=== PATIENT | male | born 1960 | race American Indian/Alaskan Native ===

== ENCOUNTER 2016-09-14 06:29 | Emergency (ER) | payer MEDICARE ==
[2016-09-14 07:07] LABS: Basophils % (Auto) 1.2 % (0.0-1.8); Eosinophils % (Auto) 1.5 % (0.0-4.3); Hematocrit 39.1 % (35.5-45.6); Mean Corpuscular HGB Conc 33 % (32-34); Mean Corpuscular Hemoglobin 29 pg (28-32); Mean Corpuscular Volume 87 fl (84-94); Platelet Count 246 K/mm3 (140-440); Red Blood Count 4.47 M/mm3 (3.65-5.03); Red Cell Distribution Width 15.2 % (13.2-15.2); White Blood Count 7.3 K/mm3 (4.5-11.0)
[2016-09-14 07:28] LABS: Alanine Aminotransferase 14 units/L (7-56); Albumin 4.3 g/dL (3.9-5); Albumin/Globulin Ratio 1.3 %; Alkaline Phosphatase 86 units/L (35-129); Anion Gap 18 mmol/L; Blood Urea Nitrogen 12 mg/dL (9-20); Calcium 9.5 mg/dL (8.4-10.2); Carbon Dioxide 23 mmol/L (22-30); Chloride 100.4 mmol/L (98-107); Glucose 114 mg/dL (75-100); Potassium 3.9 mmol/L (3.6-5.0); Sodium 137 mmol/L (137-145); Total Protein 7.6 g/dL (6.3-8.2)
[2016-09-14 07:51] LABS: Bilirubin,Urine NEG (Negative); Blood,Urine NEG (Negative); Ketones,Urine TR mg/dL (Negative); Leukocyte Esterase,Urine NEG (Negative); Mucus,Urine FEW /HPF; Nitrite,Urine NEG (Negative); Protein,Urine <15 mg/dL mg/dL (Negative); Urobilinogen,Urine < 2.0 mg/dL (<2.0); WBC,Urine < 1.0 /HPF (0.0-6.0)
[2016-09-14] MEDS ORDERED: CATAPRES PO ONE (08:17)
[2016-09-14 09:02] LABS: Creatine Kinase 172 units/L (55-170)
[2016-09-14 09:14] VITALS: BP 163/76
== END 2016-09-14 09:17 | disposition left against medical advice (07) ==
LOC: ED 06:29
DX: I10 Essential (primary) hypertension (principal); Z53.21 Procedure and treatment not carried out due to patient leaving prior to being seen by health care provider
CPT/HCPCS: 36415; 80053; 81001; 82550; 82553; 82962; 84484; 85025; 93005; 93010

== ENCOUNTER 2016-09-14 10:00 | Emergency (ER) | payer MEDICARE ==
[2016-09-14 12:49] VITALS: BP 147/94
--- NOTE | 2016-09-14 18:47 | Emergency Department Report ---
Entered by VICKI MCCORMACK, acting as scribe for FRANCISCO BROWN NP. ED General Adult HPI - General Chief complaint: High BP Stated complaint: HIGH BLOOD PRESSURE Time Seen by Provider: 09/14/16 10:47 Source: patient Mode of arrival: Ambulatory Limitations: No Limitations - History of Present Illness Initial comments: This is a 56 year old male nontoxic, well nourished in appearance, no acute signs of distress, with PMHx DM and HTN, presents to ED with c/o HTN and hyperglycemia since earlier today. Patient stated he was here earlier today for high blood pressure and hyperglycemia but eloped. Patient stated he received a "blood pressure" medication in the ED and went back to the [facility]. When he went back they told him that he needs a confirmation note that he was in the ED. Patient right now states he just wants a note from the hospital that he was here. Patient stated has follow-up provider for blood pressure medication and diabetes medication. Patient stated he is not taking HTN and DM meds at this time due to no income. Patient denies chest pain, SOB, nausea, headache, fever, chills, n/v, stiff neck, abd pain, polyuria, urinary symptoms, vomiting, or blurry vision. NKDA. WATSON Complaint: Medical Clearance -: Last night Associated Symptoms: denies other symptoms. denies: confusion, chest pain, cough, diaphoresis, fever/chills, headaches, loss of appetite, malaise, nausea/ vomiting, rash, seizure, shortness of breath, syncope, weakness Treatments Prior to Arrival: none - Related Data Allergies Allergy/AdvReac Type Severity Reaction Status Date / Time No Known Allergies Allergy Verified 09/14/16 10:10 ED Review of Systems Comment: All other systems reviewed and negative Constitutional: denies: chills, fever Eyes: denies: eye pain, eye discharge, vision change ENT: denies: ear pain, throat pain Respiratory: denies: cough, orthopnea, shortness of breath, SOB with exertion, SOB at rest, wheezing Cardiovascular: denies: chest pain, palpitations, dyspnea on exertion, orthopnea , edema, syncope, paroxysmal nocturnal dyspnea Endocrine: no symptoms reported Gastrointestinal: denies: abdominal pain, nausea, diarrhea, constipation Genitourinary: denies: urgency, dysuria Musculoskeletal: denies: back pain, joint swelling, arthralgia Skin: denies: rash, lesions Neurological: denies: headache, weakness, numbness, paresthesias Psychiatric: denies: anxiety, depression Hematological/Lymphatic: denies: easy bleeding, easy bruising ED Past Medical Hx - Past Medical History Hx Hypertension: Yes Hx Diabetes: Yes Hx Psychiatric Treatment: Yes (BIPOLAR) Additional medical history: PANCREATITIS - Social History Smoking Status: Current Every Day Smoker Substance Use Type: None ED Physical Exam - General Limitations: No Limitations General appearance: alert, in no apparent distress - Head Head exam: Present: atraumatic, normocephalic, normal inspection - Eye Eye exam: Present: normal appearance, PERRL, EOMI. Absent: scleral icterus, conjunctival injection, nystagmus, periorbital swelling, periorbital tenderness Pupils: Present: normal accommodation. Absent: irregular - ENT ENT exam: Present: normal exam, normal orophraynx, mucous membranes moist, TM's normal bilaterally, normal external ear exam - Neck Neck exam: Present: normal inspection, full ROM. Absent: tenderness, meningismus, lymphadenopathy, thyromegaly - Respiratory Respiratory exam: Present: normal lung sounds bilaterally. Absent: respiratory distress, wheezes, rales, rhonchi, stridor, chest wall tenderness, accessory muscle use, decreased breath sounds, prolonged expiratory - Cardiovascular Cardiovascular Exam: Present: regular rate, normal rhythm, normal heart sounds. Absent: bradycardia, tachycardia, irregular rhythm, systolic murmur, diastolic murmur, rubs, gallop - GI/Abdominal GI/Abdominal exam: Present: soft, normal bowel sounds - Rectal Rectal exam: Present: deferred - Extremities Exam Extremities exam: Present: normal inspection, full ROM, normal capillary refill. Absent: tenderness, pedal edema, joint swelling, calf tenderness - Back Exam Back exam: Present: normal inspection, full ROM. Absent: tenderness, CVA tenderness (R), CVA tenderness (L), muscle spasm, paraspinal tenderness, vertebral tenderness, rash noted - Neurological Exam Neurological exam: Present: alert, oriented X3, CN II-XII intact, normal gait, reflexes normal - Psychiatric Psychiatric exam: Present: normal affect, normal mood - Skin Skin exam: Present: warm, dry, intact, normal color. Absent: rash ED Course Vital Signs 09/14/16 10:10 Temperature 98.2 F Pulse Rate 78 Respiratory 16 Rate Blood Pressure 112/82 O2 Sat by Pulse 100 Oximetry - Reevaluation(s) Reevaluation #1: 09/14/16 12:33 Patient is able to speak in full sentences with no signs of distress noted. Reevaluation #2: 09/14/16 12:33 Patient refused UA and stated he just wants his discharge paper work. ED Medical Decision Making - Medical Decision Making Ed course: This is a 56-year-old male that presents with HTN and hyperglycmia 1- patient was examined by myself. Patient stated he does not want any lab work or UA. 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 2- Patient was instructed that he needs to take medication for his blood pressure and DM 3- At time time of discharge, the patient does not seem toxic or ill in appearance. No acute signs of distress noted. Patient agrees to discharge treatment plan of care. No further questions noted by the patient. 4- patients b/p is currently normal. Patient is requesting food and water. ED Disposition Clinical Impression: Hypertension, Encounter for medical clearance for patient hold Disposition: DC-01 TO HOME OR SELFCARE Is pt being admited?: No Does the pt Need Aspirin: No Condition: Stable Instructions: Diabetes Mellitus Type 2 in Adults (ED), Hypertension (ED) Additional Instructions: Follow-up department care doctor in 24 hours. It is important that he take a blood pressure medication and diabetes medication. These health conditions can be very serious and could affect her life. Referrals: PRIMARY CARE, [Primary Care Provider] - 24 Hours JYOTI MARCIAL JR, MD [Staff Physician] - 3-5 Days [facility] [Outside] - 3-5 Days [facility] [Outside] - 3-5 Days Forms: Work/School Release Form(ED) This documentation as recorded by the KSENIA holland PEARL,accurately reflects the service I personally performed and the decisions made by me,FRANCISCO BROWN, JOCY.
== END 2016-09-14 12:49 | disposition home or self-care (01) ==
LOC: ED 10:00
DX: I10 Essential (primary) hypertension (principal); E11.65 Type 2 diabetes mellitus with hyperglycemia; F17.200 Nicotine dependence, unspecified, uncomplicated
CPT/HCPCS: 82962; 99282

== ENCOUNTER 2016-09-17 09:48 | Emergency (ER) | payer MEDICARE ==
--- NOTE | 2016-09-17 12:01 | XRay Report ---
Chest 2 views: History: Cough, DM. Findings: Normal cardiomediastinal silhouette. Trachea is midline. No consolidation, pneumothorax or pleural effusion. Impression: No acute cardiopulmonary findings.
[2016-09-17 14:16] VITALS: BP 134/95
--- NOTE | 2016-09-17 18:43 | Emergency Department Report ---
Entered by NANO LEAHY, acting as scribe for FRANCISCO BROWN NP. - General Chief Complaint: Upper Respiratory Infection Stated Complaint: COLD,DIABATES Time Seen by Provider: 09/17/16 11:58 Source: patient Mode of arrival: Ambulatory Limitations: No Limitations - History of Present Illness Initial Comments: This is a 56 y/o male, nontoxic, well nourished in appearance, no acute signs of distress presents with cold and high blood sugar since yesterday. Associated symptoms include dry cough but he denies fever, chills, throat pain, chest pain , calf bell, abd pain, n/v, shortness of breathe, and rhinorrhea. Patient stated he just started his Metformin medication this morning and stated he took first dose this morning 30mins prior to arrival to the ED. Patient denies polyuria, polydipsia, dysuria, constipation, or diarrhea. No alleviating or aggravating factors. NKDA. WATSON Complaint: cough Onset/Timin -: days(s) Severity: mild Consistency: intermittent Improves With: nothing Worsens With: nothing Associated Symptoms: cough. denies: fever, chills, myalgias, diaphoresis, headache, rhinorrhea, sore throat, stiff neck, chest pain, shortness of breath, abdominal pain, nausea, vomiting, diarrhea, dysuria, rash, confusion, right sweats, weight loss, epistaxis, hoarseness, ear pain Treatments Prior to Arrival: none - Related Data Previous Rx's Medication Instructions Recorded Last Taken Type guaiFENesin [Robitussin] 200 mg PO Q4HR 5 Days 09/17/16 Unknown Rx Allergies Allergy/AdvReac Type Severity Reaction Status Date / Time No Known Allergies Allergy Verified 09/14/16 10:10 ED Review of Systems Comment: All other systems reviewed and negative Constitutional: denies: chills, fever Eyes: denies: eye pain, eye discharge, vision change ENT: denies: throat pain, dental pain, hearing loss Respiratory: cough Cardiovascular: denies: chest pain, palpitations Endocrine: no symptoms reported Gastrointestinal: denies: abdominal pain, nausea, diarrhea Genitourinary: denies: urgency, dysuria Musculoskeletal: denies: back pain, joint swelling, arthralgia Skin: denies: rash, lesions Neurological: denies: headache, weakness, paresthesias Psychiatric: denies: anxiety, depression Hematological/Lymphatic: denies: easy bleeding, easy bruising ED Past Medical Hx - Past Medical History Previous Medical History?: Yes Hx Hypertension: Yes Hx Diabetes: Yes Hx Psychiatric Treatment: Yes (BIPOLAR) Additional medical history: PANCREATITIS - Surgical History Past Surgical History?: No - Social History Smoking Status: Current Every Day Smoker Substance Use Type: Alcohol - Medications Home Medications: Home Medications Medication Instructions Recorded Confirmed Last Taken Type guaiFENesin [Robitussin] 200 mg PO Q4HR 5 Days 09/17/16 Unknown Rx ED Physical Exam - General Limitations: No Limitations General appearance: alert, in no apparent distress - Head Head exam: Present: atraumatic, normocephalic, normal inspection - Eye Eye exam: Present: normal appearance, PERRL, EOMI. Absent: scleral icterus, conjunctival injection, nystagmus, periorbital swelling, periorbital tenderness Pupils: Present: normal accommodation - ENT ENT exam: Present: normal exam, normal orophraynx, mucous membranes moist, TM's normal bilaterally, normal external ear exam - Neck Neck exam: Present: normal inspection, full ROM. Absent: tenderness, meningismus, lymphadenopathy, thyromegaly - Respiratory Respiratory exam: Present: normal lung sounds bilaterally. Absent: respiratory distress, wheezes, rales, rhonchi, stridor, chest wall tenderness, accessory muscle use, decreased breath sounds, prolonged expiratory - Cardiovascular Cardiovascular Exam: Present: regular rate, normal rhythm, normal heart sounds. Absent: bradycardia, tachycardia, irregular rhythm, systolic murmur, diastolic murmur, rubs, gallop - GI/Abdominal GI/Abdominal exam: Present: soft, normal bowel sounds. Absent: distended, tenderness, guarding, rebound, rigid, diminished bowel sounds - Rectal Rectal exam: Present: deferred - Extremities Exam Extremities exam: Present: normal inspection, full ROM, normal capillary refill. Absent: tenderness, pedal edema, joint swelling, calf tenderness - Back Exam Back exam: Present: normal inspection, full ROM. Absent: tenderness, CVA tenderness (R), CVA tenderness (L), muscle spasm, paraspinal tenderness, vertebral tenderness, rash noted - Neurological Exam Neurological exam: Present: alert, oriented X3, CN II-XII intact, normal gait, reflexes normal - Psychiatric Psychiatric exam: Present: normal affect, normal mood - Skin Skin exam: Present: warm, dry, intact, normal color. Absent: rash ED Course Vital Signs 09/17/16 09:57 Temperature 98.4 F Pulse Rate 90 Respiratory 22 Rate Blood Pressure 134/80 O2 Sat by Pulse 99 Oximetry - Reevaluation(s) Reevaluation #1: 09/17/16 13:37 Patient is able to speak in full sentences with no signs of distress. ED Medical Decision Making - Medical Decision Making ED course; this is a 56-year-old male that presents with dry cough 1- patient was examined by myself. Patient only c/o of dry cough that started 2 days ago. Patient denies any other symptoms. 2- patient stated he checked his blood glucose at the [facility] and it was about 260 and took his metformin for the first time. In the ED BG has dropped to 175. Patient will no be treated additionally to lower glucose levels due to taking metformin prior to arrival to the ED and complications of hypoglycemia 3- patient was instructed to take metformin as prescribed everyday and check blood glucose levels as directed by primary care doctor ED Disposition Clinical Impression: Common cold Disposition: DC-01 TO HOME OR SELFCARE Is pt being admited?: No Does the pt Need Aspirin: No Condition: Stable Instructions: Cold Symptoms (ED), Metformin (By mouth), Guaifenesin (By mouth) Additional Instructions: Take metformin as prescribed everyday and check blood glucose levels as directed by primary care doctor. follow-up with your primary care doctor in 3-5 days Prescriptions: guaiFENesin [Robitussin] 200 mg PO Q4HR 5 Days Referrals: PRIMARY CAREMD [Primary Care Provider] - 3-5 Days MAYNOR AGUIRRE MD [Staff Physician] - 3-5 Days [facility] [Outside] - 3-5 Days [facility] [Outside] - 3-5 Days Forms: Work/School Release Form(ED) This documentation as recorded by the TOSIN holland ELIZABETH,accurately reflects the service I personally performed and the decisions made by me,FRANCISCO BROWN, JOCY.
== END 2016-09-17 13:55 | disposition home or self-care (01) ==
LOC: ED 09:48
DX: J00 Acute nasopharyngitis [common cold] (principal); E11.9 Type 2 diabetes mellitus without complications; I10 Essential (primary) hypertension; F31.9 Bipolar disorder, unspecified; F17.200 Nicotine dependence, unspecified, uncomplicated
CPT/HCPCS: 71020; 82962; 99283

== ENCOUNTER 2017-09-04 03:33 | Emergency (ER) | payer MEDICARE | END 2017-09-04 03:49 | disposition left against medical advice (07) | LOC: ED 03:33 | DX: M79.1 Myalgia (principal); Z53.21 Procedure and treatment not carried out due to patient leaving prior to being seen by health care provider ==

== ENCOUNTER 2017-09-04 04:56 | Emergency (ER) | payer MEDICARE ==
[2017-09-04 05:42] LABS: Basophils # (Auto) 0.1 K/mm3 (0.0-0.1); Eosinophils # (Auto) 0.1 K/mm3 (0.0-0.4); Eosinophils % (Auto) 2.3 % (0.0-4.3); Hematocrit 42.7 % (35.5-45.6); Hemoglobin 14.3 gm/dl (11.8-15.2); Lymphocytes # (Auto) 2.4 K/mm3 (1.2-5.4); Lymphocytes % (Auto) 38.9 % (13.4-35.0); Mean Corpuscular HGB Conc 34 % (32-34); Mean Corpuscular Hemoglobin 31 pg (28-32); Mean Corpuscular Volume 93 fl (84-94); Monocytes # (Auto) 0.6 K/mm3 (0.0-0.8); Monocytes % (Auto) 9.1 % (0.0-7.3); Platelet Count 254 K/mm3 (140-440); Red Blood Count 4.57 M/mm3 (3.65-5.03); Red Cell Distribution Width 15.7 % (13.2-15.2)
[2017-09-04 05:59] LABS: BUN/Creatinine Ratio 13; Blood Urea Nitrogen 10 mg/dL (9-20); Calcium 9.2 mg/dL (8.4-10.2); Hemolysis Index 10
[2017-09-04 06:07] LABS: Bilirubin,Urine NEG (Negative); Blood,Urine NEG (Negative); Color,Urine Yellow (Yellow); Mucus,Urine FEW /HPF; Protein,Urine <15 mg/dL mg/dL (Negative); Urobilinogen,Urine < 2.0 mg/dL (<2.0)
[2017-09-04 06:15] LABS: Amphetamine Screen,Urine PRESUMPTIVE NEGATIVE; Benzodiazepines Screen,Urine PRESUMPTIVE NEGATIVE; Methadone Screen,Urine PRESUMPTIVE NEGATIVE; Opiate Screen,Urine PRESUMPTIVE NEGATIVE
[2017-09-04 06:28] LABS: Cannabinoid Screen,Urine PRESUMPTIVE POSITIVE; Cocaine Screen,Urine PRESUMPTIVE POSITIVE
--- NOTE | 2017-09-04 06:58 | Emergency Department Report ---
ED General Adult HPI - General Chief complaint: Psych Stated complaint: MENTAL HEALTH Time Seen by Provider: 09/04/17 06:25 Source: patient, EMS Mode of arrival: Ambulatory Limitations: No Limitations - History of Present Illness Initial comments: Patient presents to emergency Department for detox. The patient states that he wants to be detoxed from alcohol and drugs. Patient states she's been a user for quite some time with his last alcohol beverage p.m. last night. Patient has no other complaints. - Related Data Previous Rx's Medication Instructions Recorded Last Taken Type guaiFENesin [Robitussin] 200 mg PO Q4HR 5 Days udc 09/17/16 Unknown Rx Allergies Allergy/AdvReac Type Severity Reaction Status Date / Time No Known Allergies Allergy Verified 09/14/16 10:10 ED Review of Systems ROS: Stated complaint: MENTAL HEALTH Other details as noted in HPI Comment: All other systems reviewed and negative Constitutional: denies: chills, fever Eyes: denies: eye pain, eye discharge, vision change ENT: denies: ear pain, throat pain Respiratory: denies: cough, shortness of breath, wheezing Cardiovascular: denies: chest pain, palpitations Endocrine: no symptoms reported Gastrointestinal: denies: abdominal pain, nausea, diarrhea Genitourinary: denies: urgency, dysuria Musculoskeletal: denies: back pain, joint swelling, arthralgia Skin: denies: rash, lesions Neurological: denies: headache, weakness, paresthesias Psychiatric: denies: anxiety, depression Hematological/Lymphatic: denies: easy bleeding, easy bruising ED Past Medical Hx - Past Medical History Previous Medical History?: Yes Hx Hypertension: Yes Hx Diabetes: Yes Hx Seizures: Yes Hx Psychiatric Treatment: Yes (BIPOLAR) Additional medical history: PANCREATITIS - Surgical History Past Surgical History?: Yes Additional Surgical History: back and neck. hemorroids - Social History Smoking Status: Current Every Day Smoker Substance Use Type: Alcohol, Other - Medications Home Medications: Home Medications Medication Instructions Recorded Confirmed Last Taken Type guaiFENesin [Robitussin] 200 mg PO Q4HR 5 Days udc 09/17/16 Unknown Rx ED Physical Exam - General Limitations: No Limitations General appearance: alert, in no apparent distress - Head Head exam: Present: atraumatic, normocephalic - Eye Eye exam: Present: normal appearance, PERRL, EOMI - ENT ENT exam: Present: mucous membranes moist - Neck Neck exam: Present: normal inspection - Respiratory Respiratory exam: Present: normal lung sounds bilaterally. Absent: respiratory distress, rales, rhonchi - Cardiovascular Cardiovascular Exam: Present: regular rate, normal rhythm. Absent: systolic murmur, diastolic murmur, rubs, gallop - GI/Abdominal GI/Abdominal exam: Present: soft, normal bowel sounds. Absent: distended, tenderness - Rectal Rectal exam: Present: deferred - Extremities Exam Extremities exam: Present: normal inspection - Back Exam Back exam: Present: normal inspection - Neurological Exam Neurological exam: Present: alert, oriented X3, CN II-XII intact. Absent: motor sensory deficit - Psychiatric Psychiatric exam: Present: normal affect, normal mood. Absent: homicidal ideation, suicidal ideation - Skin Skin exam: Present: warm, dry, intact, normal color. Absent: rash ED Course Vital Signs 09/04/17 05:07 Temperature 97.6 F Pulse Rate 72 Respiratory 16 Rate Blood Pressure 148/87 O2 Sat by Pulse 97 Oximetry ED Medical Decision Making - Lab Data Result diagrams: 09/04/17 05:12 09/04/17 05:12 Critical care attestation.: If time is entered above; I have spent that time in minutes in the direct care of this critically ill patient, excluding procedure time. ED Disposition Condition: Stable
[2017-09-04] MEDS: ATIVAN PO PRN (15:07)
[2017-09-05] MEDS: ATIVAN PO PRN (00:14)
--- NOTE | 2017-09-05 12:28 | Consultation ---
History of Present Illness - Reason for Consult Consult date: 09/05/17 Reason for consult: Initial Psychiatric Evaluation - Chief Complaint Chief complaint: " Substance abuse and mental health" - History of Present Psychiatric Illness Patient is a 57-year-old -[place] male who presents to the emergency room for substance abuse, suicidal ideation without a plan, and paranoia. Patient is known to provider. Patient has a past psychiatric history of schizoaffective disorder and cocaine use disorder. He reports " I got tired of seeing myself go down. I had no other place to go so I came here to get help. " Patient reports decreased energy, decreased appetite, and decreased sleep. He endorses suicidal ideations without a plan and paranoia. He states," I believe someone is out to get me." He denies homicidal ideations and auditory/ visual/tactile hallucinations. Per mental health pipe foreman patient did not endorse paranoia or suicidal ideations upon admission. Current psychiatric medications: Patient denies. He reports that he has been noncompliant with medication for 3-4 months. Past psychiatric history: Schizoaffective Disorder, Bipolar Type ( ); more then 10 previous inpatient hospitalizations; no outpatient psychiatrist; 2 previous suicide attempts(stepping in front of a car and attempting to jump off of bridge). Past psychiatric medication trials: " I don't remember." History of trauma/abuse: Patient denies sexual, physical, and mental abuse. Drugs/alcohol abuse history: Cocaine- daily, frequency -varies, duration- throughout the day, last use-09/05/2017, first use-1985; alcohol-daily, frequency -varies, duration-varies, last use-09/05/2017, first use- age 13. Social history: Highest level of education-9th grade; No source of income; 2 children; ; homeless; and poor support system. Family History: Patient denies family hx of psychiatric or substance abuse. Medications and Allergies Allergies Allergy/AdvReac Type Severity Reaction Status Date / Time No Known Allergies Allergy Verified 09/14/16 10:10 Home Medications Medication Instructions Recorded Confirmed Last Taken Type guaiFENesin [Robitussin] 200 mg PO Q4HR 5 Days udc 09/17/16 Unknown Rx Active Meds: Active Medications Lorazepam (Ativan) 2 mg PO Q1H PRN PRN Reason: CIWA-Ar 8-15 Last Admin: 09/05/17 00:14 Dose: 2 mg Mental Status Exam - Vital signs Last Vital Signs Temp 98.7 F 09/04/17 22:47 Pulse 84 09/04/17 22:47 Resp 17 09/04/17 22:47 BP 166/111 09/04/17 22:47 Pulse Ox 100 09/04/17 22:47 - Exam Narrative exam: Mental Status Exam General Appearance: Casually dressed-hospital gown Eye Contact: Intermittent Attitude/Behavior: Cooperative Sensorium: Clear Orientation: Alert and oriented x 3 (person, place, and situation) Psychomotor and Musculoskeletal Activity: Ambulatory Mood: "Depressed" Affect: Flat Speech/Language: Regular rate and tone Thought Process: Circumstantial Though Content: Paranoid- believes that others want to harm him Perception: Patient denies A/V/T hallucinations Concentration/Attention: Impaired Suicidal Ideation/Plan: + suicidal ideation without a plan Homicidal Ideation/Plan: Patient denies Judgment: Fair Insight: Varies Results Result Diagrams: 09/04/17 05:12 09/04/17 05:12 All other labs normal. Assessment and Plan Assessment and plan: Impression: Hx of Schizoaffective Disorder, Cocaine Use Disorder. Today patient presents calm, cooperative, and compliant. He endorses sad mood, suicidal ideations without a plan, and paranoia. He reports that he would like to get help for cocaine abuse. He denies HI and A/V/T hallucinations. Patient appears to be malingering due to homelessness. Recommendation/Plan: 1. Patient has been referred to [facility]. 2. Patient is in no danger to self or others. 3. In case of a psychiatric emergency, patient will call 911, report to the emergency room, or call the suicide crisis line. Patient verbalizes full understanding.
[2017-09-05 17:32] VITALS: BP 155/95
== END 2017-09-05 20:22 | disposition left against medical advice (07) ==
LOC: ED 04:56 → EEVIPCON 04:56 → ED 09-05 20:22
DX: Z00.8 Encounter for other general examination (principal); I10 Essential (primary) hypertension; E11.9 Type 2 diabetes mellitus without complications; F31.9 Bipolar disorder, unspecified; F17.200 Nicotine dependence, unspecified, uncomplicated
CPT/HCPCS: 36415; 80048; 80185; 80307; 81001; 82962; 85025; 99285; G0480; 80320

== ENCOUNTER 2017-09-08 16:13 | Emergency (ER) | payer MEDICARE ==
[2017-09-08 17:42] LABS: Eosinophils # (Auto) 0.1 K/mm3 (0.0-0.4); Eosinophils % (Auto) 3.1 % (0.0-4.3); Hematocrit 39.6 % (35.5-45.6); Hemoglobin 13.3 gm/dl (11.8-15.2); Lymphocytes # (Auto) 1.7 K/mm3 (1.2-5.4); Lymphocytes % (Auto) 37.3 % (13.4-35.0); Mean Corpuscular HGB Conc 34 % (32-34); Mean Corpuscular Hemoglobin 31 pg (28-32); Mean Corpuscular Volume 93 fl (84-94); Monocytes # (Auto) 0.7 K/mm3 (0.0-0.8); Monocytes % (Auto) 14.8 % (0.0-7.3); Platelet Count 243 K/mm3 (140-440); Red Blood Count 4.26 M/mm3 (3.65-5.03); Red Cell Distribution Width 16.1 % (13.2-15.2)
[2017-09-08 18:18] LABS: Alanine Aminotransferase 33 units/L (7-56); Albumin 3.9 g/dL (3.9-5); BUN/Creatinine Ratio 8; Blood Urea Nitrogen 10 mg/dL (9-20); Calcium 9.1 mg/dL (8.4-10.2); Hemolysis Index 17
[2017-09-08 20:49] LABS: Bilirubin,Urine NEG (Negative); Blood,Urine SM (Negative); Color,Urine Yellow (Yellow); Mucus,Urine FEW /HPF; Protein,Urine <15 mg/dL mg/dL (Negative)
[2017-09-08 21:05] LABS: Amphetamine Screen,Urine PRESUMPTIVE NEGATIVE; Benzodiazepines Screen,Urine PRESUMPTIVE NEGATIVE; Methadone Screen,Urine PRESUMPTIVE NEGATIVE; Opiate Screen,Urine PRESUMPTIVE NEGATIVE
[2017-09-08 21:23] LABS: Cannabinoid Screen,Urine PRESUMPTIVE POSITIVE; Cocaine Screen,Urine PRESUMPTIVE POSITIVE
--- NOTE | 2017-09-09 06:03 | Emergency Department Report ---
HPI - General Chief Complaint: Psych Time Seen by Provider: 09/09/17 05:51 - HPI HPI: The patient is a 57-year-old male presents for evaluation of mental health. The patient reports constant and severe sadness and depression for the past one to 2 weeks. He states that his symptoms became significantly worse over the past one day, and that he developed suicidal ideations. He also reports auditory hallucinations that come and him were to go. The patient denies fever, headache, unexplained weight loss or weight gain, heat or cold intolerance, skin , hair, or nail changes, neuro deficits, homicidal ideations, or visual hallucinations. ED Past Medical Hx - Past Medical History Hx Hypertension: Yes Hx Diabetes: Yes Hx Seizures: Yes Hx Psychiatric Treatment: Yes (BIPOLAR) Additional medical history: PANCREATITIS - Surgical History Additional Surgical History: back and neck. hemorroids - Social History Smoking Status: Current Every Day Smoker Substance Use Type: Alcohol - Medications Home Medications: Home Medications Medication Instructions Recorded Confirmed Last Taken Type guaiFENesin [Robitussin] 200 mg PO Q4HR 5 Days [facility] [place] Unknown Rx ED Review of Systems ROS: Stated complaint: MEDICAL CLEARANCE Other details as noted in HPI Constitutional: denies: fever ENT: denies: throat or neck pain Respiratory: denies: cough, shortness of breath Cardiovascular: denies: chest pain Endocrine: denies unexplained weight loss or gain Gastrointestinal: denies: abdominal pain, nausea Genitourinary: denies: dysuria Musculoskeletal: denies: leg swelling Skin: denies: rash Neurological: denies: headache Hematological/Lymphatic: denies: easy bleeding or easy bruising Psych: reports sadness or hopelessness Physical Exam - Physical Exam Vital Signs: Vital Signs 09/08/17 16:40 Temperature 98.6 F Pulse Rate 97 H Respiratory 16 Rate Blood Pressure 156/91 O2 Sat by Pulse 97 Oximetry Physical Exam: General: well-nourished, well-developed, no acute distress Head: Normocephalic, atraumatic Eyes: normal sclera ENT: Mucous membranes are pink and moist Neck: trachea midline, neck supple, No neck stiffness, no cervical adenopathy Respiratory: Breath sounds equal bilaterally, no wheezing, rales, or rhonchi Cardio: S1 and S2 present, no murmurs, rubs, gallops, capillary refill is brisk Abdomen: Normoactive bowel sounds, soft abdomen, no rigidity, no guarding or rebound tenderness Musc: No pitting edema Skin: No rash Neuro: no facial drooping, normal speech Psych: Flat affect, poor insight, depressed mood, positive suicidal ideation ED Course Vital Signs 09/08/17 16:40 Temperature 98.6 F Pulse Rate 97 H Respiratory 16 Rate Blood Pressure 156/91 O2 Sat by Pulse 97 Oximetry ED Medical Decision Making - Lab Data Result diagrams: 09/08/17 17:08 09/08/17 17:08 - Medical Decision Making The patient was seen and examined by myself. The patient is placed on a pvc monitor and continuous pulse ox. On initial evaluation, the patient was found to be in no distress. Labs are obtained. Lab results are grossly unremarkable. The patient is medically clear. Mental health is consulted. Mental health evaluates the patient and agrees that the patient is at risk of harm to self. A 1013 is completed. The patient will be admitted to a psychiatric facility once bed placement is obtained. Critical care attestation.: If time is entered above; I have spent that time in minutes in the direct care of this critically ill patient, excluding procedure time. ED Disposition Clinical Impression: Suicidal ideation Depression Qualifiers: Depression Type: major depressive disorder Major depression recurrence: single episode Active/Remission status: currently active Major depression episode severity: severe Psychotic features: with psychotic features Qualified Code(s): F32.3 - Major depressive disorder, single episode, severe with psychotic features Disposition: DC/TX-65 PSY HOSP/PSY UNIT Is pt being admited?: No Does the pt Need Aspirin: No Condition: Fair Referrals: PRIMARY CARE [Primary Care Provider] - 3-5 Days Time of Disposition: 06:13
[2017-09-09 13:10] VITALS: BP 164/82
--- NOTE | 2017-09-10 19:31 | Consultation ---
History of Present Illness - Reason for Consult Consult date: 09/05/17 Reason for consult: Initial Psychiatric Evaluation - Chief Complaint Chief complaint: " Alcohol and mental health" Medications and Allergies Allergies Allergy/AdvReac Type Severity Reaction Status Date / Time No Known Allergies Allergy Verified 09/14/16 10:10 Home Medications Medication Instructions Recorded Confirmed Last Taken Type guaiFENesin [Robitussin] 200 mg PO Q4HR 5 Days c 09/17/16 Unknown Rx Mental Status Exam - Vital signs Last Vital Signs Temp 98.1 F 09/09/17 05:53 Pulse 86 09/09/17 13:08 Resp 18 09/09/17 13:08 BP 164/82 09/09/17 13:08 Pulse Ox 98 09/09/17 13:08 Results Result Diagrams: 09/08/17 17:08 09/08/17 17:08 All other labs normal.
== END 2017-09-09 15:30 ==
LOC: ED 16:13 → EEVIPCON 16:13 → ED 09-09 15:30
DX: F33.3 Major depressive disorder, recurrent, severe with psychotic symptoms (principal); I10 Essential (primary) hypertension; E11.9 Type 2 diabetes mellitus without complications; F17.200 Nicotine dependence, unspecified, uncomplicated
CPT/HCPCS: 36415; 80053; 80307; 81001; 85025; 99284; G0480; 80320

== ENCOUNTER 2018-06-29 00:36 | Emergency (ER) | payer MEDICARE ==
[2018-06-29] MEDS ORDERED: ULTRAM PO ONE (00:55)
[2018-06-29 01:21] LABS: Basophils # (Auto) 0.1 K/mm3 (0.0-0.1); Basophils % (Auto) 1.5 % (0.0-1.8); Eosinophils # (Auto) 0.1 K/mm3 (0.0-0.4); Eosinophils % (Auto) 0.8 % (0.0-4.3); Hematocrit 36.7 % (35.5-45.6); Hemoglobin 12.3 gm/dl (11.8-15.2); Lymphocytes # (Auto) 2.3 K/mm3 (1.2-5.4); Lymphocytes % (Auto) 30.4 % (13.4-35.0); Mean Corpuscular HGB Conc 34 % (32-34); Mean Corpuscular Volume 91 fl (84-94); Monocytes # (Auto) 0.6 K/mm3 (0.0-0.8); Monocytes % (Auto) 7.7 % (0.0-7.3); Platelet Count 335 K/mm3 (140-440); Red Blood Count 4.03 M/mm3 (3.65-5.03); Red Cell Distribution Width 13.9 % (13.2-15.2)
[2018-06-29 01:43] LABS: Alanine Aminotransferase 10 units/L (7-56); Albumin 3.8 g/dL (3.9-5); BUN/Creatinine Ratio 6; Blood Urea Nitrogen 7 mg/dL (9-20); Calcium 8.9 mg/dL (8.4-10.2); Hemolysis Index 6
[2018-06-29 01:58] LABS: Amphetamine Screen,Urine PRESUMPTIVE NEGATIVE; Benzodiazepines Screen,Urine PRESUMPTIVE NEGATIVE; Bilirubin,Urine NEG (Negative); Blood,Urine NEG (Negative); Color,Urine Straw (Yellow); Methadone Screen,Urine PRESUMPTIVE NEGATIVE; Opiate Screen,Urine PRESUMPTIVE NEGATIVE; Protein,Urine <15 mg/dL mg/dL (Negative); Urobilinogen,Urine < 2.0 mg/dL (<2.0); WBC,Urine < 1.0 /HPF (0.0-6.0)
[2018-06-29 02:12] LABS: Cannabinoid Screen,Urine PRESUMPTIVE POSITIVE; Cocaine Screen,Urine PRESUMPTIVE POSITIVE
--- NOTE | 2018-06-29 02:19 | Emergency Department Report ---
ED Psych HPI - General Chief Complaint: Alcohol Stated Complaint: SWOLLEN FEET Time Seen by Provider: 06/29/18 00:49 Source: patient, EMS Mode of arrival: Stretcher - History of Present Illness Initial Comments: Patient is a 58-year-old male who is here because of suicidal ideations. Patient states that he is had thoughts of hopelessness and thoughts of hurting himself. Patient states that he's been drinking heavily secondary to one dull pain and depression. Patient also states that he says pain in his bilateral feet right greater than left secondary to his diabetes. Patient states is very depressed and feels that life is falling apart. Patient has no definitive plan on how to hurt himself at this time. - Related Data Previous Rx's Medication Instructions Recorded Last Taken Type guaiFENesin [Robitussin] 200 mg PO Q4HR 5 Days ud[facility] 09/17/16 Unknown Rx Nystatin [Nystop Powder] 60 gm TP BID 10 Days powder 06/29/18 Unknown Rx Allergies Allergy/AdvReac Type Severity Reaction Status Date / Time No Known Allergies Allergy Verified 09/14/16 10:10 ED Review of Systems ROS: Stated complaint: SWOLLEN FEET Other details as noted in HPI Comment: All other systems reviewed and negative ED Past Medical Hx - Past Medical History Hx Hypertension: Yes Hx Diabetes: Yes Hx Seizures: Yes Hx Psychiatric Treatment: Yes (BIPOLAR) Additional medical history: PANCREATITIS - Surgical History Past Surgical History?: Yes Additional Surgical History: back and neck. hemorroids - Social History Smoking Status: Current Every Day Smoker Substance Use Type: Alcohol, Cocaine, Marijuana - Medications Home Medications: Home Medications Medication Instructions Recorded Confirmed Last Taken Type guaiFENesin [Robitussin] 200 mg PO Q4HR 5 Days [facility] 09/17/16 06/29/18 Unknown Rx Nystatin [Nystop Powder] 60 gm TP BID 10 Days powder 06/29/18 Unknown Rx ED Physical Exam - General Limitations: Physical Limitation General appearance: alert, in no apparent distress - Head Head exam: Present: atraumatic, normocephalic - Eye Eye exam: Present: normal appearance - ENT ENT exam: Present: mucous membranes moist - Neck Neck exam: Present: normal inspection - Respiratory Respiratory exam: Present: normal lung sounds bilaterally. Absent: respiratory distress, wheezes, rales, rhonchi - Cardiovascular Cardiovascular Exam: Present: regular rate, normal rhythm. Absent: systolic murmur, diastolic murmur, rubs, gallop - GI/Abdominal GI/Abdominal exam: Present: soft, normal bowel sounds. Absent: distended, tenderness, guarding, rebound - Rectal Rectal exam: Present: deferred - Extremities Exam Extremities exam: Present: normal inspection - Expanded Lower Extremity Exam Right Foot/Toe exam: Present: full ROM, tenderness, erythema (patient has some wet skin to the plantar surface. Skin is also thickened and moist especially in between the toes in the web space. There is significant cracking. There is no evidence of any bleeding or purulent drainage.). Absent: swelling, abrasion, laceration Neuro vascular tendon exam: Present: no vascular compromise. Absent: pulse deficit - Back Exam Back exam: Present: normal inspection - Neurological Exam Neurological exam: Present: alert, oriented X3 - Psychiatric Psychiatric exam: Present: normal affect, normal mood - Skin Skin exam: Present: warm, dry, intact, normal color. Absent: rash ED Course Vital Signs 06/29/18 06/29/18 06/29/18 00:41 01:30 08:00 Temperature 99.4 F 97.7 F 98.7 F Pulse Rate 88 85 94 H Respiratory 16 20 Rate Blood Pressure 158/93 Blood Pressure 157/92 169/86 [Left] O2 Sat by Pulse 97 98 100 Oximetry 06/29/18 06/29/18 06/30/18 14:17 20:00 02:00 Temperature 98.7 F 98.5 F 98.5 F Pulse Rate 83 98 H 98 H Respiratory 20 18 18 Rate Blood Pressure Blood Pressure 168/95 153/98 144/87 [Left] O2 Sat by Pulse 93 96 96 Oximetry 06/30/18 06/30/18 08:12 11:41 Temperature 98.3 F 97.6 F Pulse Rate 74 80 Respiratory 16 18 Rate Blood Pressure Blood Pressure 162/77 132/76 [Left] O2 Sat by Pulse 95 Oximetry ED Medical Decision Making - Lab Data Result diagrams: 06/29/18 01:09 06/29/18 01:09 Lab Results 06/29/18 06/29/18 06/29/18 Range/Units 01:09 01:09 01:09 WBC 7.4 (4.5-11.0) K/mm3 RBC 4.03 (3.65-5.03) M/mm3 Hgb 12.3 (11.8-15.2) gm/dl Hct 36.7 (35.5-45.6) % MCV 91 (84-94) fl MCH 31 (28-32) pg MCHC 34 (32-34) % RDW 13.9 (13.2-15.2) % Plt Count 335 (140-440) K/mm3 Lymph % (Auto) 30.4 (13.4-35.0) % [place] % (Auto) 7.7 H (0.0-7.3) % Eos % (Auto) 0.8 (0.0-4.3) % Baso % (Auto) 1.5 (0.0-1.8) % Lymph # 2.3 (1.2-5.4) K/mm3 [place] # 0.6 (0.0-0.8) K/mm3 Eos # 0.1 (0.0-0.4) K/mm3 Baso # 0.1 (0.0-0.1) K/mm3 Seg Neutrophils % 59.6 (40.0-70.0) % Seg Neutrophils # 4.4 (1.8-7.7) K/mm3 Sodium 140 (137-145) mmol/L Potassium 3.2 L (3.6-5.0) mmol/L Chloride 103.9 (98-107) mmol/L Carbon Dioxide 19 L (22-30) mmol/L Anion Gap 20 mmol/L BUN 7 L (9-20) mg/dL Creatinine 1.2 (0.8-1.5) mg/dL Estimated GFR > 60 ml/min BUN/Creatinine Ratio 6 % Glucose 122 H (75-100) mg/dL Calcium 8.9 (8.4-10.2) mg/dL Total Bilirubin 0.30 (0.1-1.2) mg/dL AST 13 (5-40) units/L ALT 10 (7-56) units/L Alkaline Phosphatase 94 (35-129) units/L Total Protein 6.7 (6.3-8.2) g/dL Albumin 3.8 L (3.9-5) g/dL Albumin/Globulin Ratio 1.3 % Urine Color (Yellow) Urine Turbidity (Clear) Urine pH (5.0-7.0) Ur Specific [place] (1.003-1.030) Urine Protein (Negative) mg/dL Urine Glucose (UA) (Negative) mg/dL Urine Ketones (Negative) mg/dL Urine Blood (Negative) Urine Nitrite (Negative) Urine Bilirubin (Negative) Urine Urobilinogen (<2.0) mg/dL Ur Leukocyte Esterase (Negative) Urine WBC (Auto) (0.0-6.0) /HPF Urine RBC (Auto) (0.0-6.0) /HPF Salicylates < 0.3 L (2.8-20.0) mg/dL Urine Opiates Screen Urine Methadone Screen Acetaminophen (10.0-30.0) ug/mL Ur Barbiturates Screen Ur Phencyclidine Scrn Ur Amphetamines Screen U Benzodiazepines Scrn Urine Cocaine Screen U Marijuana (THC) Screen Drugs of Abuse Note Plasma/Serum Alcohol (0-0.07) % 06/29/18 06/29/18 06/29/18 Range/Units 01:09 01:09 01:30 WBC (4.5-11.0) K/mm3 RBC (3.65-5.03) M/mm3 Hgb (11.8-15.2) gm/dl Hct (35.5-45.6) % MCV (84-94) fl MCH (28-32) pg MCHC (32-34) % RDW (13.2-15.2) % Plt Count (140-440) K/mm3 Lymph % (Auto) (13.4-35.0) % [place] % (Auto) (0.0-7.3) % Eos % (Auto) (0.0-4.3) % Baso % (Auto) (0.0-1.8) % Lymph # (1.2-5.4) K/mm3 [place] # (0.0-0.8) K/mm3 Eos # (0.0-0.4) K/mm3 Baso # (0.0-0.1) K/mm3 Seg Neutrophils % (40.0-70.0) % Seg Neutrophils # (1.8-7.7) K/mm3 Sodium (137-145) mmol/L Potassium (3.6-5.0) mmol/L Chloride (98-107) mmol/L Carbon Dioxide (22-30) mmol/L Anion Gap mmol/L BUN (9-20) mg/dL Creatinine (0.8-1.5) mg/dL Estimated GFR ml/min BUN/Creatinine Ratio % Glucose (75-100) mg/dL Calcium (8.4-10.2) mg/dL Total Bilirubin (0.1-1.2) mg/dL AST (5-40) units/L ALT (7-56) units/L Alkaline Phosphatase (35-129) units/L Total Protein (6.3-8.2) g/dL Albumin (3.9-5) g/dL Albumin/Globulin Ratio % Urine Color Straw (Yellow) Urine Turbidity Clear (Clear) Urine pH 6.0 (5.0-7.0) Ur Specific [place] 1.005 (1.003-1.030) Urine Protein <15 mg/dl (Negative) mg/dL Urine Glucose (UA) Neg (Negative) mg/dL Urine Ketones Neg (Negative) mg/dL Urine Blood Neg (Negative) Urine Nitrite Neg (Negative) Urine Bilirubin Neg (Negative) Urine Urobilinogen < 2.0 (<2.0) mg/dL Ur Leukocyte Esterase Neg (Negative) Urine WBC (Auto) < 1.0 (0.0-6.0) /HPF Urine RBC (Auto) 2.0 (0.0-6.0) /HPF Salicylates (2.8-20.0) mg/dL Urine Opiates Screen Urine Methadone Screen Acetaminophen < 5.0 L (10.0-30.0) ug/mL Ur Barbiturates Screen Ur Phencyclidine Scrn Ur Amphetamines Screen U Benzodiazepines Scrn Urine Cocaine Screen U Marijuana (THC) Screen Drugs of Abuse Note Plasma/Serum Alcohol 0.19 H (0-0.07) % 06/29/18 Range/Units 01:30 WBC (4.5-11.0) K/mm3 RBC (3.65-5.03) M/mm3 Hgb (11.8-15.2) gm/dl Hct (35.5-45.6) % MCV (84-94) fl MCH (28-32) pg MCHC (32-34) % RDW (13.2-15.2) % Plt Count (140-440) K/mm3 Lymph % (Auto) (13.4-35.0) % [place] % (Auto) (0.0-7.3) % Eos % (Auto) (0.0-4.3) % Baso % (Auto) (0.0-1.8) % Lymph # (1.2-5.4) K/mm3 [place] # (0.0-0.8) K/mm3 Eos # (0.0-0.4) K/mm3 Baso # (0.0-0.1) K/mm3 Seg Neutrophils % (40.0-70.0) % Seg Neutrophils # (1.8-7.7) K/mm3 Sodium (137-145) mmol/L Potassium (3.6-5.0) mmol/L Chloride (98-107) mmol/L Carbon Dioxide (22-30) mmol/L Anion Gap mmol/L BUN (9-20) mg/dL Creatinine (0.8-1.5) mg/dL Estimated GFR ml/min BUN/Creatinine Ratio % Glucose (75-100) mg/dL Calcium (8.4-10.2) mg/dL Total Bilirubin (0.1-1.2) mg/dL AST (5-40) units/L ALT (7-56) units/L Alkaline Phosphatase (35-129) units/L Total Protein (6.3-8.2) g/dL Albumin (3.9-5) g/dL Albumin/Globulin Ratio % Urine Color (Yellow) Urine Turbidity (Clear) Urine pH (5.0-7.0) Ur Specific [place] (1.003-1.030) Urine Protein (Negative) mg/dL Urine Glucose (UA) (Negative) mg/dL Urine Ketones (Negative) mg/dL Urine Blood (Negative) Urine Nitrite (Negative) Urine Bilirubin (Negative) Urine Urobilinogen (<2.0) mg/dL Ur Leukocyte Esterase (Negative) Urine WBC (Auto) (0.0-6.0) /HPF Urine RBC (Auto) (0.0-6.0) /HPF Salicylates (2.8-20.0) mg/dL Urine Opiates Screen Presumptive negative Urine Methadone Screen Presumptive negative Acetaminophen (10.0-30.0) ug/mL Ur Barbiturates Screen Presumptive negative Ur Phencyclidine Scrn Presumptive negative Ur Amphetamines Screen Presumptive negative U Benzodiazepines Scrn Presumptive negative Urine Cocaine Screen Presumptive positive U Marijuana (THC) Screen Presumptive positive Drugs of Abuse Note Disclamer Plasma/Serum Alcohol (0-0.07) % - Medical Decision Making Patient medically cleared at this time. Patient placed in 2012 for his protection. Patient likely will be reassessed once he reaches sobriety. Patient has a prescription for nystatin powder chart. Patient is to keep his shoes clean and dry with a dry socks. Patient socks today with very wet moist and damp. Critical care attestation.: If time is entered above; I have spent that time in minutes in the direct care of this critically ill patient, excluding procedure time. ED Disposition Clinical Impression: Alcohol abuse, Suicidal ideation Disposition: DC/TX-65 PSY HOSP/PSY UNIT Is pt being admited?: No Does the pt Need Aspirin: No Condition: Stable Prescriptions: Nystatin [Nystop Powder] 60 gm TP BID 10 Days powder Referrals: ISABEL GALARZA MD [Primary Care Provider] - 3-5 Days
--- NOTE | 2018-06-29 15:26 | Consultation ---
History of Present Illness - Reason for Consult Consult date: 06/29/18 Reason for consult: Initial Psychiatric Evaluation - Chief Complaint Chief complaint: " I don't feel no better" - History of Present Psychiatric Illness Patient is a 58 year old male that presents to the hospital with suicidal ideations w/o a plan. Patient has a past psychiatric history of schizoaffective disorder, bipolar type. Patient states that he had thoughts of hopelessness and thoughts of hurting himself. He verbalizes that he's been drinking heavily secondary to one dull pain and depression. Today the patient is calm and cooperative during the assessment. Patient is guarded/withdrawn during the assessment. He endorses intermittent auditory hallucinations " they call my name" and paranoid delusions. Patient reports that he has been noncompliant with medication for approximately 1 year. He denies HI's. Current psychiatric medications: Patient denies. He reports that he has been noncompliant with medication for approximately 1 year. Past psychiatric history: Schizoaffective Disorder, Bipolar Type ( ); more then 10 previous inpatient hospitalizations; no outpatient psychiatrist; 2 previous suicide attempts(stepping in front of a car and attempting to jump off of bridge). Past psychiatric medication trials: " I don't remember." History of trauma/abuse: Patient denies sexual, physical, and mental abuse. Drugs/alcohol abuse history: Cocaine- daily, frequency -varies, duration- throughout the day, last use-09/05/2017, first use-1985; alcohol-daily, frequency -varies, duration-varies, last use-09/05/2017, first use- age 13. UDS positive for marijuana/cocaine. Social history: Highest level of education-9th grade; No source of income; 2 children; ; homeless; and poor support system. Family History: Patient denies family hx of psychiatric or substance abuse. Medications and Allergies Allergies Allergy/AdvReac Type Severity Reaction Status Date / Time No Known Allergies Allergy Verified 09/14/16 10:10 Home Medications Medication Instructions Recorded Confirmed Last Taken Type guaiFENesin [Robitussin] 200 mg PO Q4HR 5 Days udc 09/17/16 Unknown Rx Nystatin [Nystop Powder] 60 gm TP BID 10 Days powder 06/29/18 Unknown Rx Mental Status Exam - Vital signs Last Vital Signs Temp 98.7 F 06/29/18 14:17 Pulse 83 06/29/18 14:17 Resp 20 06/29/18 14:17 BP 168/95 06/29/18 14:17 Pulse Ox 93 06/29/18 14:17 - Exam Narrative exam: Mental Status Exam General Appearance: Casually dressed-hospital gown Eye Contact: Intermittent Attitude/Behavior: Cooperative Sensorium: Clear Orientation: Alert and oriented x 3 (person, place, and situation) Psychomotor and Musculoskeletal Activity: Ambulatory Mood: "Depressed" Affect: Flat Speech/Language: Regular rate and tone Thought Process: Circumstantial, Impoverished Though Content: Intermittent auditory hallucination and paranoid- believes that others want to harm him Perception: Patient denies HI's. Concentration/Attention: Impaired Suicidal Ideation/Plan: + suicidal ideation without a plan- intermittent Homicidal Ideation/Plan: Patient denies HI's. Judgment: Fair Insight: Varies Results Result Diagrams: 06/29/18 01:09 06/29/18 01:09 Abnormal lab results 06/29/18 06/29/18 06/29/18 Range/Units 01:09 01:09 01:09 [place] % (Auto) 7.7 H (0.0-7.3) % Potassium 3.2 L (3.6-5.0) mmol/L Carbon Dioxide 19 L (22-30) mmol/L BUN 7 L (9-20) mg/dL Glucose 122 H (75-100) mg/dL POC Glucose (70-105) Albumin 3.8 L (3.9-5) g/dL Salicylates < 0.3 L (2.8-20.0) mg/dL Acetaminophen (10.0-30.0) ug/mL Plasma/Serum Alcohol (0-0.07) % 06/29/18 06/29/18 06/29/18 Range/Units 01:09 01:09 08:53 [place] % (Auto) (0.0-7.3) % Potassium (3.6-5.0) mmol/L Carbon Dioxide (22-30) mmol/L BUN (9-20) mg/dL Glucose (75-100) mg/dL POC Glucose 106 H (70-105) Albumin (3.9-5) g/dL Salicylates (2.8-20.0) mg/dL Acetaminophen < 5.0 L (10.0-30.0) ug/mL Plasma/Serum Alcohol 0.19 H (0-0.07) % All other labs normal. Assessment and Plan Assessment and plan: Impression: Hx of Schizoaffective Disorder, Cocaine Use Disorder. Today patient presents calm, cooperative, and compliant. He endorses sad mood, intermittent suicidal ideations without a plan, auditory hallucinations and paranoia delusio ns. He reports that he would like to get help for cocaine abuse. UDS positive for marijuana and cocaine abuse. Recommendation/Plan: 1. Continue 1013. 2. Start Abilify 5mg po QHS psychosis/mood. Discussed metabolic side effects of Abilify. Start Zoloft 50mg po QAM depression/anxiety. Discussed possible increase suicidality/ medication induced jorge. Patient verbalizes u nderstanding. 3. Will attempt to gain collateral. Disposition: Will refer patient to inpatient psychiatric services. Staffed with Dr. Garcia.
[2018-06-29] MEDS ORDERED: ABILIFY PO SCH (22:00)
[2018-06-30] MEDS ORDERED: ZOLOFT PO SCH (10:00)
[2018-06-30 11:42] VITALS: BP 132/76
== END 2018-06-30 11:41 ==
LOC: ED 00:36
DX: F31.9 Bipolar disorder, unspecified (principal); I10 Essential (primary) hypertension; E11.9 Type 2 diabetes mellitus without complications; F17.200 Nicotine dependence, unspecified, uncomplicated; F12.90 Cannabis use, unspecified, uncomplicated; F14.90 Cocaine use, unspecified, uncomplicated
CPT/HCPCS: 36415; 80053; 80307; 81001; 82962; 85025; 99285; G0480; 80320

== ENCOUNTER 2018-09-11 05:01 | Emergency (ER) | payer MEDICARE ==
[2018-09-11 06:10] LABS: Basophils # (Auto) 0.1 K/mm3 (0.0-0.1); Basophils % (Auto) 1.2 % (0.0-1.8); Eosinophils # (Auto) 0.3 K/mm3 (0.0-0.4); Hemoglobin 12.3 gm/dl (11.8-15.2); Lymphocytes # (Auto) 2.1 K/mm3 (1.2-5.4); Mean Corpuscular HGB Conc 33 % (32-34); Mean Corpuscular Volume 87 fl (84-94); Monocytes # (Auto) 0.7 K/mm3 (0.0-0.8); Monocytes % (Auto) 9.1 % (0.0-7.3); Red Blood Count 4.27 M/mm3 (3.65-5.03); Red Cell Distribution Width 15.4 % (13.2-15.2)
[2018-09-11 06:32] LABS: Platelet Count 319 K/mm3 (140-440)
[2018-09-11 06:48] LABS: Alanine Aminotransferase 16 units/L (7-56); Albumin 3.8 g/dL (3.9-5); BUN/Creatinine Ratio 7; Blood Urea Nitrogen 9 mg/dL (9-20); Calcium 8.7 mg/dL (8.4-10.2); Hemolysis Index 6
--- NOTE | 2018-09-11 08:28 | Emergency Department Report ---
ED General Adult HPI - General Chief complaint: Abdominal Pain Stated complaint: FOOT PAIN Time Seen by Provider: 09/11/18 08:24 Source: patient, EMS Mode of arrival: Wheelchair Limitations: No Limitations - History of Present Illness Initial comments: Patient is a 58-year-old male presents to emergency room with bilateral lower extremity pain and swelling and abdominal pain. Patient states his legs are hurting from his knees down and has been going on for several weeks. Patient states the pain is worsening. Patient states she has not seen a physician for this. Patient states the pain is a 10 out of 10. Patient states the pain is worse with movement and walking. Patient states the pain is better with rest and remaining still. Patient denies fever and chills. Patient denies shortness of breath. Patient denies chest pain. Patient states his abdominal pain is a 10 out of 10. Patient states the pain is better with rest and worse with movement. -: Sudden Location: abdomen, lower extremity Radiation: non-radiation Severity scale (0 -10): 10 Quality: stabbing Consistency: constant Improves with: rest Worsens with: movement Associated Symptoms: denies: confusion, chest pain, cough, diaphoresis, fever/chills, headaches, loss of appetite, malaise, nausea/vomiting, rash, seizure, shortness of breath, syncope, weakness Treatments Prior to Arrival: none - Related Data Previous Rx's Medication Instructions Recorded Last Taken Type guaiFENesin [Robitussin] 200 mg PO Q4HR 5 Days udc 09/17/16 Unknown Rx Nystatin [Nystop Powder] 60 gm TP BID 10 Days powder 06/29/18 Unknown Rx Allergies Allergy/AdvReac Type Severity Reaction Status Date / Time No Known Allergies Allergy Verified 09/14/16 10:10 ED Review of Systems ROS: Stated complaint: FOOT PAIN Other details as noted in HPI Constitutional: denies: chills, fever Eyes: denies: eye pain, eye discharge, vision change ENT: denies: ear pain, throat pain Respiratory: denies: cough, shortness of breath, wheezing Cardiovascular: denies: chest pain, palpitations Endocrine: no symptoms reported Gastrointestinal: abdominal pain. denies: nausea, diarrhea Genitourinary: denies: urgency, dysuria Musculoskeletal: denies: back pain, joint swelling, arthralgia Skin: denies: rash, lesions Neurological: denies: headache, weakness, paresthesias Psychiatric: denies: anxiety, depression Hematological/Lymphatic: denies: easy bleeding, easy bruising ED Past Medical Hx - Past Medical History Previous Medical History?: Yes Hx Hypertension: Yes Hx Diabetes: Yes Hx Seizures: Yes Hx Psychiatric Treatment: Yes (BIPOLAR) Additional medical history: PANCREATITIS - Surgical History Past Surgical History?: Yes Additional Surgical History: back and neck. hemorroids - Family History Family history: no significant - Social History Smoking Status: Current Every Day Smoker Substance Use Type: Alcohol, Cocaine - Medications Home Medications: Home Medications Medication Instructions Recorded Confirmed Last Taken Type guaiFENesin [Robitussin] 200 mg PO Q4HR 5 Days udc 09/17/16 06/29/18 Unknown Rx Nystatin [Nystop Powder] 60 gm TP BID 10 Days powder 06/29/18 Unknown Rx ED Physical Exam - General Limitations: No Limitations General appearance: alert, in no apparent distress - Head Head exam: Present: atraumatic, normocephalic - Eye Eye exam: Present: normal appearance - ENT ENT exam: Present: mucous membranes moist - Neck Neck exam: Present: normal inspection - Respiratory Respiratory exam: Present: normal lung sounds bilaterally. Absent: respiratory distress, wheezes, rales - Cardiovascular Cardiovascular Exam: Present: regular rate, normal rhythm. Absent: systolic murmur, diastolic murmur, rubs, gallop - GI/Abdominal GI/Abdominal exam: Present: soft, distended, tenderness, rigid, normal bowel sounds. Absent: guarding, rebound - Rectal Rectal exam: Present: deferred - Extremities Exam Extremities exam: Present: tenderness, pedal edema, calf tenderness, other (pedal edema noted, tenderness to palpation with bilateral lower extremities, both extremity swollen to the knees) - Back Exam Back exam: Present: normal inspection, full ROM - Neurological Exam Neurological exam: Present: alert, oriented X3 - Psychiatric Psychiatric exam: Present: normal affect, normal mood - Skin Skin exam: Present: warm, dry, intact, normal color. Absent: rash ED Course Vital Signs 09/11/18 09/11/18 09/11/18 05:02 13:07 14:50 Temperature 98.4 F 98.1 F Pulse Rate 69 63 Respiratory 18 20 Rate Blood Pressure 167/102 171/88 Blood Pressure 183/110 [Left] O2 Sat by Pulse 98 96 Oximetry 09/11/18 09/11/18 09/11/18 14:53 15:00 16:00 Temperature Pulse Rate 70 Respiratory Rate Blood Pressure 167/91 150/92 Blood Pressure 171/88 [Left] O2 Sat by Pulse Oximetry 09/11/18 17:00 Temperature Pulse Rate Respiratory Rate Blood Pressure 160/89 Blood Pressure [Left] O2 Sat by Pulse Oximetry - Reevaluation(s) Reevaluation #1: Discussed all results patient. Patient will be given a banana bag and by mouth intake. If patient tolerates by mouth intake patient to be discharged home. 09/11/18 13:59 Reevaluation #2: Discussed all results with patient. Patient is stable for discharge. Patient will be discharged home. Patient given discharge instructions. Patient voiced understanding of discharge instructions. Patient agrees with plan of care. 09/11/18 15:25 ED Medical Decision Making - Lab Data Result diagrams: 09/11/18 05:50 09/11/18 05:50 - Radiology Data Radiology results: report reviewed DUPLEX DOPPLER BILATERAL LOWER EXTREMITY VEINS INDICATION: leg pain and swelling FINDINGS: There is no thrombus within the deep veins of either lower extremity from the common femoral to the calf veins. There is normal compression and augmentation on spectral analysis. There are bilateral popliteal cysts in both knee joints. IMPRESSION: No sonographic evidence for DVT in either lower extremity. CT ABDOMEN AND PELVIS WITH CONTRAST HISTORY: Lower abdominal pain that radiates to his legs COMPARISON: None. TECHNIQUE: Axial CT images were obtained through the abdomen and pelvis after 100 cc of Omnipaque 300 intravenously. Sagittal and coronal reformatted images. All CT scans at this location are performed using CT dose reduction for ALARA by means of automated exposure control. FINDINGS: CT ABDOMEN: Lung Bases: Clear. Liver: No significant abnormality. Biliary: No significant abnormality. Spleen: No significant abnormality. Unenlarged. Pancreas: There are chunky calcifications in the pancreatic head suggestive of chronic pancreatitis. The pancreatic body and tail are mildly atrophic with ductal dilatation measuring up to 1.1 cm. No acute inflammatory changes, mass or pseudocyst is identified. Adrenals: No significant abnormality. Kidneys: No significant abnormality. Lymphatics: No lymphadenopathy. Vasculature: Moderate to severe calcific plaques are noted in the distal aorta and common iliac arteries. No aneurysm. Stenosis of the common iliac arteries, particularly on the right side, could be considered. Bowel/Peritoneum: No evidence for bowel obstruction or focal inflammation. There is moderate stool in the colon. The appendix is not confidently identified CT PELVIS: : No significant abnormality. Osseous Structures: No significant abnormality. Additional Findings: None IMPRESSION: No acute inflammatory process is identified. Chronic pancreatitis findings as described above. No evidence for acute pancreatitis on CT. Mild fecal retention. Atherosclerotic disease in the distal aorta and common iliac arteries. - Medical Decision Making Patient is a 58-year-old male Emergency room with lower extremity swelling and abdominal pain.Ultrasound for lower extremity swelling was negative. Patient's abdominal CT negative except for chronic pancreatitis and constipation. Patient tolerated by mouth intake. Patient tolerated by mouth potassium. Patient's hypokalemia given oral potassium to supplement. Patient given been ablated for his chronic alcoholism. Patient advised to decrease alcohol intake and try to stop soon under the direction of his primary care. Patient also advised to stop taking drugs. For the patient's lower extremity swelling patient advised elevate increase water and use compression stockings. Patient stable for discharge. Patient given discharge instructions. - Differential Diagnosis abdominal pain. Chronic pancreatitis. Lower extremity swelling Critical care attestation.: If time is entered above; I have spent that time in minutes in the direct care of this critically ill patient, excluding procedure time. ED Disposition Clinical Impression: Alcohol abuse, Swelling of lower extremity, Cocaine use, Hypokalemia Abdominal pain Qualifiers: Abdominal location: generalized Qualified Code(s): R10.84 - Generalized abdominal pain Chronic pancreatitis Qualifiers: Pancreatitis type: alcohol induced Qualified Code(s): K86.0 - Alcohol-induced chronic pancreatitis Constipation Qualifiers: Constipation type: unspecified constipation type Qualified Code(s): K59.00 - Constipation, unspecified Lower extremity pain Qualifiers: Laterality: bilateral Qualified Code(s): M79.604 - Pain in right leg Disposition: DC-01 TO HOME OR SELFCARE Is pt being admited?: No Does the pt Need Aspirin: No Condition: Stable Instructions: Abuse of Alcohol (ED), Leg Edema (ED), Polysubstance Abuse (ED) Additional Instructions: Patient follow-up with primary care in 2-3 days. Patient to stop use of cocaine and drugs. Patient to decrease alcohol intake. Patient will need to decrease alcohol intake and eventually stop. Patient to follow up with GI in 2-3 days. Patient to return to ER if condition worsens. Patient to take Tylenol or ibuprofen when necessary for pain. Patient to increase water. Patient to rest. Referrals: ISABEL GALARZA MD [Primary Care Provider] - 2-3 Days Time of Disposition: 13:58
[2018-09-11 09:36] LABS: Bacteria,Urine 1+ /HPF (Negative); Bilirubin,Urine NEG (Negative); Blood,Urine NEG (Negative); Color,Urine Yellow (Yellow); Mucus,Urine FEW /HPF; Protein,Urine <15 mg/dL mg/dL (Negative); Urobilinogen,Urine < 2.0 mg/dL (<2.0)
[2018-09-11 09:55] LABS: Amphetamine Screen,Urine PRESUMPTIVE NEGATIVE; Benzodiazepines Screen,Urine PRESUMPTIVE NEGATIVE; Methadone Screen,Urine PRESUMPTIVE NEGATIVE; Opiate Screen,Urine PRESUMPTIVE NEGATIVE
[2018-09-11 10:15] LABS: Cannabinoid Screen,Urine PRESUMPTIVE POSITIVE; Cocaine Screen,Urine PRESUMPTIVE POSITIVE
--- NOTE | 2018-09-11 10:34 | Vascular Lab Report ---
DUPLEX DOPPLER BILATERAL LOWER EXTREMITY VEINS INDICATION: leg pain and swelling FINDINGS: There is no thrombus within the deep veins of either lower extremity from the common femoral to the c fci veins. There is normal compression and augmentation on spectral analysis. There are bilateral pop liteal cysts in both knee joints. IMPRESSION: No sonographic evidence for DVT in either lower extremity. Signer Name: Darnell Macdonald MD Signed: 09/11/2018 10:30 AM Workstation Name: [id number]
--- NOTE | 2018-09-11 13:52 | Cat Scan Report ---
CT ABDOMEN AND PELVIS WITH CONTRAST HISTORY: Lower abdominal pain that radiates to his legs COMPARISON: None. TECHNIQUE: Axial CT images were obtained through the abdomen and pelvis after 100 cc of Omnipaque 300 intravenously. Sagittal and coronal reformatted images. All CT scans at this location are performed using CT dose reduction for ALARA by means of automated exposure control. FINDINGS: CT ABDOMEN: Lung Bases: Clear. Liver: No significant abnormality. Biliary: No significant abnormality. Spleen: No significant abnormality. Unenlarged. Pancreas: There are chunky calcifications in the pancreatic head suggestive of chronic pancreatitis. The pancreatic body and tail are mildly atrophic with ductal dilatation measuring up to 1.1 cm. No ac doe inflammatory changes, mass or pseudocyst is identified. Adrenals: No significant abnormality. Kidneys: No significant abnormality. Lymphatics: No lymphadenopathy. Vasculature: Moderate to severe calcific plaques are noted in the distal aorta and common iliac arter ies. No aneurysm. Stenosis of the common iliac arteries, particularly on the right side, could be con sidered. Bowel/Peritoneum: No evidence for bowel obstruction or focal inflammation. There is moderate stool in the colon. The appendix is not confidently identified CT PELVIS: : No significant abnormality. Osseous Structures: No significant abnormality. Additional Findings: None IMPRESSION: No acute inflammatory process is identified. Chronic pancreatitis findings as described above. No evidence for acute pancreatitis on CT. Mild fecal retention. Atherosclerotic disease in the distal aorta and common iliac arteries. Signer Name: Anjel Bradshaw Jr, MD Signed: 09/11/2018 1:48 PM Workstation Name: [id number]
[2018-09-11] MEDS ORDERED: K-DUR PO ONE (13:55)
[2018-09-11] MEDS ORDERED: VITAMIN B-1 100 MG, FOLVITE 1 MG, INFUVITE 10 ML in NACL 0.9% 1000 ML 1,000 ML IV ONE (14:30)
[2018-09-11 17:06] VITALS: BP 160/89
== END 2018-09-11 18:50 | disposition home or self-care (01) ==
LOC: ED 05:01
DX: E87.6 Hypokalemia (principal); F10.10 Alcohol abuse, uncomplicated; M79.89 Other specified soft tissue disorders; K86.1 Other chronic pancreatitis; K59.00 Constipation, unspecified; M79.604 Pain in right leg; M79.603 Pain in arm, unspecified; I10 Essential (primary) hypertension; E11.9 Type 2 diabetes mellitus without complications; F31.9 Bipolar disorder, unspecified; F17.200 Nicotine dependence, unspecified, uncomplicated; F14.90 Cocaine use, unspecified, uncomplicated; Z79.899 Other long term (current) drug therapy
CPT/HCPCS: 36415; 74177; 80053; 80307; 81001; 85025; 93970; 96365; 96366; 99284; J3411; J7030; Q9967; 80320; 96374; G0480

== ENCOUNTER 2019-03-22 00:34 | Emergency (ER) | payer MEDICARE | END 2019-03-22 00:40 | disposition left against medical advice (07) | LOC: ED 00:34 | DX: M79.606 Pain in leg, unspecified (principal); Z53.21 Procedure and treatment not carried out due to patient leaving prior to being seen by health care provider ==

== ENCOUNTER 2019-03-22 06:07 | Emergency (ER) | payer MEDICARE ==
--- NOTE | 2019-03-22 10:52 | Emergency Department Report ---
ED General Adult HPI - General Chief complaint: Pain General Stated complaint: BODY ACHES Source: patient Mode of arrival: Ambulatory Limitations: No Limitations - History of Present Illness Initial comments: This is a 58-year-old homeless male. He is complaining of generalized body aches for one month. The pain is more significant on his right side and right lower back. Patient also reports coughing which is productive. He has a history of diabetes and hypertension states that he's been out of his medications for 2 months or more. He denies chest pain he denies shortness of breath he denies nausea vomiting and diarrhea. -: month(s) (1) Consistency: constant Improves with: none Worsens with: none Associated Symptoms: cough, malaise. denies: chest pain, diaphoresis, headaches, loss of appetite, nausea/vomiting, rash, shortness of breath, syncope, weakness - Related Data Previous Rx's Medication Instructions Recorded Last Taken Type guaiFENesin [Robitussin] 200 mg PO Q4HR 5 Days udc 09/17/16 Unknown Rx Nystatin [Nystop Powder] 60 gm TP BID 10 Days powder 06/29/18 Unknown Rx amLODIPine 10 mg PO DAILY 30 Days #30 tab 03/22/19 Unknown Rx metFORMIN [Glucophage] 500 mg PO BID 30 Days #60 tablet 03/22/19 Unknown Rx Allergies Allergy/AdvReac Type Severity Reaction Status Date / Time No Known Allergies Allergy Verified 09/14/16 10:10 ED Review of Systems ROS: Stated complaint: BODY ACHES Other details as noted in HPI Comment: All other systems reviewed and negative Respiratory: no symptoms reported, cough ED Past Medical Hx - Past Medical History Previous Medical History?: Yes Hx Hypertension: Yes Hx Diabetes: Yes Hx Seizures: Yes Hx Psychiatric Treatment: Yes (BIPOLAR) Additional medical history: PANCREATITIS - Surgical History Past Surgical History?: Yes Additional Surgical History: back and neck. hemorroids - Social History Smoking Status: Current Every Day Smoker Substance Use Type: Alcohol, Cocaine, Marijuana - Medications Home Medications: Home Medications Medication Instructions Recorded Confirmed Last Taken Type guaiFENesin [Robitussin] 200 mg PO Q4HR 5 Days udc 09/17/16 06/29/18 Unknown Rx Nystatin [Nystop Powder] 60 gm TP BID 10 Days powder 06/29/18 Unknown Rx amLODIPine 10 mg PO DAILY 30 Days #30 tab 03/22/19 Unknown Rx metFORMIN [Glucophage] 500 mg PO BID 30 Days #60 tablet 03/22/19 Unknown Rx ED Physical Exam - General Limitations: No Limitations ED Course Vital Signs 03/22/19 03/22/19 06:30 13:52 Temperature 98.2 F Pulse Rate 83 70 Respiratory 18 18 Rate Blood Pressure 172/105 Blood Pressure 166/91 [Right] O2 Sat by Pulse 96 99 Oximetry - Reevaluation(s) Reevaluation #1: 03/22/19 13:52 In to discuss plan of treatment with patient he's sleeping soundly. Pt now states he wants assistance for rehab from drug and alcohol. Multiple calls made to reach case management ED Medical Decision Making - Lab Data Result diagrams: 03/22/19 12:02 03/22/19 12:02 - Medical Decision Making 58-year-old homeless male complaining of one month of generalized body aches he has a history of hypertension and diabetes but has not been compliant with his medications. Lab works and urinalysis and chest x-ray shows no acute findings. Patient referred to case management for outpatient referral as he is seeking rehabilitation for drug and alcohol abuse. Case management at bedside Critical Care Time: No Critical care attestation.: If time is entered above; I have spent that time in minutes in the direct care of this critically ill patient, excluding procedure time. ED Disposition Clinical Impression: Body aches, Homelessness URI (upper respiratory infection) Qualifiers: URI type: unspecified viral URI Qualified Code(s): J06.9 - Acute upper respiratory infection, unspecified Disposition: -01 TO HOME OR SELFCARE Is pt being admited?: No Does the pt Need Aspirin: No Condition: Stable Instructions: Upper Respiratory Infection (ED) Additional Instructions: Rest increase oral hydration Follow up at [facility]. Return to ER if you develop fever, Chest pain or SOB Prescriptions: amLODIPine 10 mg PO DAILY 30 Days #30 tab metFORMIN [Glucophage] 500 mg PO BID 30 Days #60 tablet Referrals: PRIMARY CARE, [Primary Care Provider] - 3-5 Days Time of Disposition: 13:41
[2019-03-22 12:19] LABS: Hematocrit 37.2 % (35.5-45.6); Hemoglobin 12.4 gm/dl (11.8-15.2); Mean Corpuscular HGB Conc 33 % (32-34); Mean Corpuscular Volume 88 fl (84-94); Platelet Count 295 K/mm3 (140-440); Red Blood Count 4.22 M/mm3 (3.65-5.03); Red Cell Distribution Width 14.8 % (13.2-15.2)
[2019-03-22 12:29] LABS: Bilirubin,Urine NEG (Negative); Blood,Urine NEG (Negative); Color,Urine Straw (Yellow); Protein,Urine <15 mg/dL mg/dL (Negative); Urobilinogen,Urine < 2.0 mg/dL (<2.0)
[2019-03-22 12:42] LABS: Alanine Aminotransferase 27 units/L (7-56); Albumin 3.8 g/dL (3.9-5); BUN/Creatinine Ratio 14; Blood Urea Nitrogen 17 mg/dL (9-20); Hemolysis Index 20
--- NOTE | 2019-03-22 12:45 | XRay Report ---
CHEST 2 VIEWS INDICATION / CLINICAL INFORMATION: MAIN: coughing PATIENT STATES THAT HE HAS NOT BEEN FEELING WELL FOR 1 MONTH. COMPARISON: Chest x-ray 09/17/2016 FINDINGS: SUPPORT DEVICES: None. HEART / MEDIASTINUM: No significant abnormality. LUNGS / PLEURA: No significant pulmonary or pleural abnormality. No pneumothorax. ADDITIONAL FINDINGS: No significant additional findings. IMPRESSION: 1. No acute findings. Signer Name: Keyshawn Vickers MD Signed: 03/22/2019 12:40 PM Workstation Name: [id number]
[2019-03-22 13:53] VITALS: BP 166/91
== END 2019-03-22 14:53 | disposition home or self-care (01) ==
LOC: ED 06:07
DX: J06.9 Acute upper respiratory infection, unspecified (principal); I10 Essential (primary) hypertension; E11.9 Type 2 diabetes mellitus without complications; G40.909 Epilepsy, unspecified, not intractable, without status epilepticus; F31.9 Bipolar disorder, unspecified; F17.200 Nicotine dependence, unspecified, uncomplicated; F12.10 Cannabis abuse, uncomplicated; Z59.0 Homelessness; Z79.899 Other long term (current) drug therapy; Z98.890 Other specified postprocedural states
CPT/HCPCS: 36415; 71046; 80053; 81001; 83690; 85027

== ENCOUNTER 2019-03-26 15:56 | Emergency (ER) | payer MEDICARE ==
[2019-03-26] MEDS ORDERED: ONDANSETRON 4 MG/2 ML INJ IV ONE (18:28)
[2019-03-26] MEDS ORDERED: MORPHINE 4 MG/1 ML INJ IV ONE (18:28)
[2019-03-26] MEDS ORDERED: hydrALAZINE 20 MG/1 ML INJ IV ONE (18:29)
[2019-03-26 18:40] LABS: Basophils # (Auto) 0.1 K/mm3 (0.0-0.1); Basophils % (Auto) 0.7 % (0.0-1.8); Eosinophils # (Auto) 0.1 K/mm3 (0.0-0.4); Eosinophils % (Auto) 1.1 % (0.0-4.3); Hematocrit 41.4 % (35.5-45.6); Hemoglobin 13.7 gm/dl (11.8-15.2); Lymphocytes # (Auto) 1.3 K/mm3 (1.2-5.4); Lymphocytes % (Auto) 12.4 % (13.4-35.0); Mean Corpuscular HGB Conc 33 % (32-34); Mean Corpuscular Volume 88 fl (84-94); Monocytes # (Auto) 0.8 K/mm3 (0.0-0.8); Monocytes % (Auto) 7.6 % (0.0-7.3); Platelet Count 328 K/mm3 (140-440); Red Blood Count 4.72 M/mm3 (3.65-5.03); Red Cell Distribution Width 14.7 % (13.2-15.2)
--- NOTE | 2019-03-26 18:40 | Emergency Department Report ---
ED General Adult HPI - General Chief complaint: Extremity Injury, Lower Stated complaint: R HIP PAIN Time Seen by Provider: 03/26/19 17:51 Source: patient, EMS Mode of arrival: Stretcher Limitations: No Limitations - History of Present Illness Initial comments: Patient presents to the emergency department with a chief complaint of right hip and leg pain status post a fall. Patient states that he took a course to help when he fell onto his right side. Patient denies in his head or lost consciousness. Patient is currently homeless and sleeps between 2 buildings for warmth. Patient's blood pressure is elevated signature patient not being able to afford his blood pressure medications. Patient denies chest pain, shortness breath, or headache -: Sudden Location: lower extremity Radiation: non-radiation Severity scale (0 -10): 5 Quality: aching Consistency: constant Improves with: none Worsens with: none Associated Symptoms: denies other symptoms Treatments Prior to Arrival: none - Related Data Previous Rx's Medication Instructions Recorded Last Taken Type guaiFENesin [Robitussin] 200 mg PO Q4HR 5 Days udc 09/17/16 Unknown Rx Nystatin [Nystop Powder] 60 gm TP BID 10 Days powder 06/29/18 Unknown Rx amLODIPine 10 mg PO DAILY 30 Days #30 tab 03/22/19 Unknown Rx metFORMIN [Glucophage] 500 mg PO BID 30 Days #60 tablet 03/22/19 Unknown Rx Ibuprofen [Motrin 800 MG tab] 800 mg PO TID #30 tablet 03/23/19 Unknown Rx Ibuprofen [Motrin] 800 mg PO Q8HR PRN #30 tablet 03/26/19 Unknown Rx hydroCHLOROthiazide [Hctz] 12.5 mg PO QDAY #30 capsule 03/26/19 Unknown Rx Allergies Allergy/AdvReac Type Severity Reaction Status Date / Time No Known Allergies Allergy Verified 09/14/16 10:10 ED Review of Systems ROS: Stated complaint: R HIP PAIN Other details as noted in HPI Constitutional: denies: chills, fever Eyes: denies: eye pain, eye discharge, vision change ENT: denies: ear pain, throat pain Respiratory: denies: cough, shortness of breath, wheezing Cardiovascular: denies: chest pain, palpitations Endocrine: no symptoms reported Gastrointestinal: denies: abdominal pain, nausea, diarrhea Genitourinary: denies: urgency, dysuria Musculoskeletal: denies: back pain, joint swelling, arthralgia Skin: denies: rash, lesions Neurological: denies: headache, weakness, paresthesias Psychiatric: denies: anxiety, depression Hematological/Lymphatic: denies: easy bleeding, easy bruising ED Past Medical Hx - Past Medical History Previous Medical History?: Yes Hx Hypertension: Yes Hx Diabetes: Yes Hx Seizures: Yes Hx Psychiatric Treatment: Yes (BIPOLAR) Additional medical history: PANCREATITIS - Surgical History Past Surgical History?: Yes Additional Surgical History: back and neck. hemorroids - Social History Smoking Status: Current Every Day Smoker Substance Use Type: Alcohol, Cocaine - Medications Home Medications: Home Medications Medication Instructions Recorded Confirmed Last Taken Type guaiFENesin [Robitussin] 200 mg PO Q4HR 5 Days udc 09/17/16 06/29/18 Unknown Rx Nystatin [Nystop Powder] 60 gm TP BID 10 Days powder 06/29/18 Unknown Rx amLODIPine 10 mg PO DAILY 30 Days #30 tab 03/22/19 Unknown Rx metFORMIN [Glucophage] 500 mg PO BID 30 Days #60 tablet 03/22/19 Unknown Rx Ibuprofen [Motrin 800 MG tab] 800 mg PO TID #30 tablet 03/23/19 Unknown Rx Ibuprofen [Motrin] 800 mg PO Q8HR PRN #30 tablet 03/26/19 Unknown Rx hydroCHLOROthiazide [Hctz] 12.5 mg PO QDAY #30 capsule 03/26/19 Unknown Rx ED Physical Exam - General Limitations: No Limitations General appearance: alert, in no apparent distress - Head Head exam: Present: atraumatic, normocephalic - Eye Eye exam: Present: normal appearance, PERRL, EOMI - ENT ENT exam: Present: mucous membranes moist - Neck Neck exam: Present: normal inspection - Respiratory Respiratory exam: Present: normal lung sounds bilaterally. Absent: respiratory distress - Cardiovascular Cardiovascular Exam: Present: regular rate, normal rhythm. Absent: systolic murmur, diastolic murmur, rubs, gallop - GI/Abdominal GI/Abdominal exam: Present: soft, normal bowel sounds. Absent: distended, tenderness - Rectal Rectal exam: Present: deferred - Extremities Exam Extremities exam: Present: tenderness (tenderness to palpation of the right hip and right femur proximal aspect) - Back Exam Back exam: Present: normal inspection - Neurological Exam Neurological exam: Present: alert, oriented X3, CN II-XII intact. Absent: motor sensory deficit - Psychiatric Psychiatric exam: Present: normal affect, normal mood - Skin Skin exam: Present: warm, dry, intact, normal color. Absent: rash ED Course Vital Signs 03/26/19 03/26/19 03/26/19 17:23 19:02 19:03 Pulse Rate 76 84 84 Respiratory 18 16 Rate Blood Pressure 187/108 Blood Pressure 199/105 187/108 [Right] O2 Sat by Pulse 95 98 Oximetry 03/26/19 19:55 Pulse Rate 94 H Respiratory 16 Rate Blood Pressure Blood Pressure 150/76 [Right] O2 Sat by Pulse 96 Oximetry ED Medical Decision Making - Lab Data Result diagrams: 03/26/19 18:33 03/26/19 18:33 Lab Results 03/26/19 03/26/19 Range/Units 18:33 18:33 WBC 10.1 (4.5-11.0) K/mm3 RBC 4.72 (3.65-5.03) M/mm3 Hgb 13.7 (11.8-15.2) gm/dl Hct 41.4 (35.5-45.6) % MCV 88 (84-94) fl MCH 29 (28-32) pg MCHC 33 (32-34) % RDW 14.7 (13.2-15.2) % Plt Count 328 (140-440) K/mm3 Lymph % (Auto) 12.4 L (13.4-35.0) % [place] % (Auto) 7.6 H (0.0-7.3) % Eos % (Auto) 1.1 (0.0-4.3) % Baso % (Auto) 0.7 (0.0-1.8) % Lymph # 1.3 (1.2-5.4) K/mm3 [place] # 0.8 (0.0-0.8) K/mm3 Eos # 0.1 (0.0-0.4) K/mm3 Baso # 0.1 (0.0-0.1) K/mm3 Seg Neutrophils % 78.2 H (40.0-70.0) % Seg Neutrophils # 7.9 H (1.8-7.7) K/mm3 Sodium 139 (137-145) mmol/L Potassium 3.8 (3.6-5.0) mmol/L Chloride 107.5 H (98-107) mmol/L Carbon Dioxide 18 L (22-30) mmol/L Anion Gap 17 mmol/L BUN 12 (9-20) mg/dL Creatinine 0.9 (0.8-1.5) mg/dL Estimated GFR > 60 ml/min BUN/Creatinine Ratio 13 % Glucose 135 H (75-100) mg/dL Calcium 9.3 (8.4-10.2) mg/dL Total Bilirubin 0.60 (0.1-1.2) mg/dL AST 17 (5-40) units/L ALT 20 (7-56) units/L Alkaline Phosphatase 117 (35-129) units/L Total Protein 7.6 (6.3-8.2) g/dL Albumin 4.2 (3.9-5) g/dL Albumin/Globulin Ratio 1.2 % - Radiology Data Radiology results: report reviewed - Medical Decision Making Imaging of the patient's hip and femur were done secondary to the patient's complaint of pain secondary to the fall. After values were obtained to evaluate the patient for an infectious process Patient states she has not taken her hypertensive meds on a regular basis quite some time Patient's BP is elevated in the ED but he is asymptomatic will be treated as outpatient for his hypertension Results were discussed with patient Critical care attestation.: If time is entered above; I have spent that time in minutes in the direct care of this critically ill patient, excluding procedure time. ED Disposition Clinical Impression: Fall, Hypertension, Hip pain, right, Leg pain, right Disposition: - TO HOME OR SELFCARE Is pt being admited?: No Does the pt Need Aspirin: No Condition: Stable Instructions: Hypertension (ED), Fall Prevention (ED) Additional Instructions: return if worse Referrals: PRIMARY CARE, [Primary Care Provider] - 3-5 Days [facility] [Provider Group] - 3-5 Days [facility] [Provider Group] - 3-5 Days Time of Disposition: 22:13
[2019-03-26 19:03] LABS: Alanine Aminotransferase 20 units/L (7-56); Albumin 4.2 g/dL (3.9-5); BUN/Creatinine Ratio 13; Blood Urea Nitrogen 12 mg/dL (9-20); Calcium 9.3 mg/dL (8.4-10.2); Hemolysis Index 8
--- NOTE | 2019-03-26 19:05 | XRay Report ---
AP PELVIS INDICATION / CLINICAL INFORMATION: Right hip pain for one year. COMPARISON: 03/23/2019. FINDINGS: BONES / JOINT(S): The hip and SI joint spaces are well-maintained. There is no evidence of fracture, dislocation or destructive lesion. SOFT TISSUES: No significant abnormality. ADDITIONAL FINDINGS: None. IMPRESSION: No acute abnormality or significant change since the prior study 3 days ago. Signer Name: Brent Christensen MD Signed: 03/26/2019 7:00 PM Workstation Name: [id number]
--- NOTE | 2019-03-26 19:05 | XRay Report ---
RIGHT FEMUR 2 VIEWS INDICATION / CLINICAL INFORMATION: Fall with right leg pain. COMPARISON: None available. FINDINGS: BONES / JOINT(S): No acute fracture or subluxation. No significant arthritis. SOFT TISSUES: No significant abnormality. ADDITIONAL FINDINGS: None. IMPRESSION: No acute abnormality. Signer Name: Brent Christensen MD Signed: 03/26/2019 7:01 PM Workstation Name: [id number]
[2019-03-26 23:40] VITALS: BP 160/79
== END 2019-03-26 23:41 | disposition home or self-care (01) ==
LOC: ED 15:56
DX: M25.551 Pain in right hip (principal); M79.604 Pain in right leg; I10 Essential (primary) hypertension; E11.9 Type 2 diabetes mellitus without complications; F17.200 Nicotine dependence, unspecified, uncomplicated; Z79.899 Other long term (current) drug therapy
CPT/HCPCS: 36415; 72170; 73552; 80053; 85025; 96374; 96375; 99285; J0360; J2270; J2405

== ENCOUNTER 2019-04-10 09:06 | Emergency (ER) | payer MEDICARE ==
[2019-04-10 09:57] LABS: Basophils # (Auto) 0.1 K/mm3 (0.0-0.1); Basophils % (Auto) 0.7 % (0.0-1.8); Eosinophils # (Auto) 0.1 K/mm3 (0.0-0.4); Eosinophils % (Auto) 2.1 % (0.0-4.3); Hemoglobin 12.7 gm/dl (11.8-15.2); Lymphocytes # (Auto) 1.1 K/mm3 (1.2-5.4); Lymphocytes % (Auto) 16.6 % (13.4-35.0); Mean Corpuscular HGB Conc 33 % (32-34); Mean Corpuscular Volume 87 fl (84-94); Monocytes # (Auto) 0.5 K/mm3 (0.0-0.8); Monocytes % (Auto) 7.7 % (0.0-7.3); Platelet Count 349 K/mm3 (140-440); Red Blood Count 4.47 M/mm3 (3.65-5.03); Red Cell Distribution Width 14.9 % (13.2-15.2)
--- NOTE | 2019-04-10 10:00 | Emergency Department Report ---
HPI - General Chief Complaint: Psych Time Seen by Provider: 04/10/19 09:51 - HPI HPI: Room 10 The patient is a 58-year-old male presenting with a chief complaint of suicidal ideation. Patient states he has felt suicidal for 2-3 days. Patient denies ac tive plan. Patient denies any attempts at trying to harm himself. Patient admits to crack cocaine use and daily alcohol consumption. ED Past Medical Hx - Past Medical History Hx Hypertension: Yes Hx Diabetes: Yes Hx Seizures: Yes Hx Psychiatric Treatment: Yes (BIPOLAR) Additional medical history: PANCREATITIS - Surgical History Past Surgical History?: No Additional Surgical History: back and neck. hemorroids - Family History Family history: no significant - Social History Smoking Status: Current Every Day Smoker (1/2 pack/day) Substance Use Type: Alcohol (Daily), Cocaine - Medications Home Medications: Home Medications Medication Instructions Recorded Confirmed Last Taken Type guaiFENesin [Robitussin] 200 mg PO Q4HR 5 Days udc 09/17/16 06/29/18 Unknown Rx Nystatin [Nystop Powder] 60 gm TP BID 10 Days powder 06/29/18 Unknown Rx amLODIPine 10 mg PO DAILY 30 Days #30 tab 03/22/19 Unknown Rx metFORMIN [Glucophage] 500 mg PO BID 30 Days #60 tablet 03/22/19 Unknown Rx Ibuprofen [Motrin 800 MG tab] 800 mg PO TID #30 tablet 03/23/19 Unknown Rx Ibuprofen [Motrin] 800 mg PO Q8HR PRN #30 tablet 03/26/19 Unknown Rx hydroCHLOROthiazide [Hctz] 12.5 mg PO QDAY #30 capsule 03/26/19 Unknown Rx ED Review of Systems ROS: Stated complaint: SI/MH EVAL Other details as noted in HPI Constitutional: no symptoms reported Eyes: denies: eye pain ENT: denies: throat pain Respiratory: no symptoms reported Cardiovascular: denies: chest pain Endocrine: no symptoms reported Gastrointestinal: denies: abdominal pain Genitourinary: denies: dysuria Musculoskeletal: denies: back pain Psychiatric: suicidal thoughts Physical Exam - Physical Exam Vital Signs: Vital Signs 04/10/19 09:17 Temperature 97.5 F L Pulse Rate 84 Respiratory 20 Rate Blood Pressure 170/96 O2 Sat by Pulse 98 Oximetry Physical Exam: GEN: WD WN male lying on stretcher in NAD HEENT: NCAT, EOMI NECK: trachea midline PULM: CTA bilat. No resp distress noted CV: rrr no m/r/g ABD: s/nt/nd SKIN: no diaphoresis NEURO: GCS 15 MUSCULOSKELETAL: No evidence of acute injury ED Course Vital Signs 04/10/19 09:17 Temperature 97.5 F L Pulse Rate 84 Respiratory 20 Rate Blood Pressure 170/96 O2 Sat by Pulse 98 Oximetry ED Medical Decision Making - Lab Data Result diagrams: 04/10/19 09:36 04/10/19 09:36 Laboratory Tests 04/10/19 04/10/19 04/10/19 09:36 09:36 09:36 WBC RBC Hgb Hct MCV MCH MCHC RDW Plt Count Lymph % (Auto) [place] % (Auto) Eos % (Auto) Baso % (Auto) Lymph # [place] # Eos # Baso # Seg Neutrophils % Seg Neutrophils # Sodium 143 Potassium 3.9 Chloride 108.2 H Carbon Dioxide 19 L Anion Gap 20 BUN 21 H Creatinine 1.3 Estimated GFR > 60 BUN/Creatinine Ratio 16 Glucose 122 H Calcium 9.1 Urine Color Urine Turbidity Urine pH Ur Specific [place] Urine Protein Urine Glucose (UA) Urine Ketones Urine Blood Urine Nitrite Urine Bilirubin Urine Urobilinogen Ur Leukocyte Esterase Urine WBC (Auto) Urine RBC (Auto) Salicylates < 0.3 L Urine Opiates Screen Urine Methadone Screen Acetaminophen < 5.0 L Ur Barbiturates Screen Phenytoin Ur Phencyclidine Scrn Ur Amphetamines Screen U Benzodiazepines Scrn Urine Cocaine Screen U Marijuana (THC) Screen Drugs of Abuse Note Plasma/Serum Alcohol 04/10/19 04/10/19 04/10/19 09:36 09:36 09:36 WBC 6.9 RBC 4.47 Hgb 12.7 Hct 39.0 MCV 87 MCH 28 MCHC 33 RDW 14.9 Plt Count 349 Lymph % (Auto) 16.6 [place] % (Auto) 7.7 H Eos % (Auto) 2.1 Baso % (Auto) 0.7 Lymph # 1.1 L [place] # 0.5 Eos # 0.1 Baso # 0.1 Seg Neutrophils % 72.9 H Seg Neutrophils # 5.0 Sodium Potassium Chloride Carbon Dioxide Anion Gap BUN Creatinine Estimated GFR BUN/Creatinine Ratio Glucose Calcium Urine Color Urine Turbidity Urine pH Ur Specific [place] Urine Protein Urine Glucose (UA) Urine Ketones Urine Blood Urine Nitrite Urine Bilirubin Urine Urobilinogen Ur Leukocyte Esterase Urine WBC (Auto) Urine RBC (Auto) Salicylates Urine Opiates Screen Urine Methadone Screen Acetaminophen Ur Barbiturates Screen Phenytoin 0.8 L Ur Phencyclidine Scrn Ur Amphetamines Screen U Benzodiazepines Scrn Urine Cocaine Screen U Marijuana (THC) Screen Drugs of Abuse Note Plasma/Serum Alcohol < 0.01 04/10/19 04/10/19 10:40 10:40 WBC RBC Hgb Hct MCV MCH MCHC RDW Plt Count Lymph % (Auto) [place] % (Auto) Eos % (Auto) Baso % (Auto) Lymph # [place] # Eos # Baso # Seg Neutrophils % Seg Neutrophils # Sodium Potassium Chloride Carbon Dioxide Anion Gap BUN Creatinine Estimated GFR BUN/Creatinine Ratio Glucose Calcium Urine Color Yellow Urine Turbidity Clear Urine pH 5.0 Ur Specific [place] 1.018 Urine Protein <15 mg/dl Urine Glucose (UA) Neg Urine Ketones Neg Urine Blood Neg Urine Nitrite Neg Urine Bilirubin Neg Urine Urobilinogen < 2.0 Ur Leukocyte Esterase Neg Urine WBC (Auto) < 1.0 Urine RBC (Auto) < 1.0 Salicylates Urine Opiates Screen Presumptive negative Urine Methadone Screen Presumptive negative Acetaminophen Ur Barbiturates Screen Presumptive negative Phenytoin Ur Phencyclidine Scrn Presumptive negative Ur Amphetamines Screen Presumptive negative U Benzodiazepines Scrn Presumptive negative Urine Cocaine Screen Presumptive positive U Marijuana (THC) Screen Presumptive negative Drugs of Abuse Note Disclamer Plasma/Serum Alcohol - Differential Diagnosis Suicidal ideation Critical care attestation.: If time is entered above; I have spent that time in minutes in the direct care o f this critically ill patient, excluding procedure time. ED Disposition Clinical Impression: Suicidal ideation Disposition: [id number]/[id number] PSY HOSP/PSY UNIT Is pt being admited?: No Does the pt Need Aspirin: No Condition: Fair Referrals: PRIMARY CARE, [Primary Care Provider] - 3-5 Days Time of Disposition: 09:59 (Awaiting acceptance)
[2019-04-10 10:17] LABS: BUN/Creatinine Ratio 16; Blood Urea Nitrogen 21 mg/dL (9-20); Calcium 9.1 mg/dL (8.4-10.2); Hemolysis Index 6
[2019-04-10 12:17] LABS: Amphetamine Screen,Urine PRESUMPTIVE NEGATIVE; Benzodiazepines Screen,Urine PRESUMPTIVE NEGATIVE; Cannabinoid Screen,Urine PRESUMPTIVE NEGATIVE; Methadone Screen,Urine PRESUMPTIVE NEGATIVE; Opiate Screen,Urine PRESUMPTIVE NEGATIVE
[2019-04-10 12:30] LABS: Cocaine Screen,Urine PRESUMPTIVE POSITIVE
[2019-04-10 13:16] LABS: Bilirubin,Urine NEG (Negative); Blood,Urine NEG (Negative); Color,Urine Yellow (Yellow); Protein,Urine <15 mg/dL mg/dL (Negative); Urobilinogen,Urine < 2.0 mg/dL (<2.0)
[2019-04-10 13:26] LABS: RBC,Urine < 1.0 /HPF (0.0-6.0); WBC,Urine < 1.0 /HPF (0.0-6.0)
[2019-04-10] MEDS ORDERED: FOSPHENYTOIN 1,000 MG.PE in SODIUM CHLORIDE 0.9% 100 ML IV ONE (14:00)
[2019-04-11 14:14] VITALS: BP 119/67
--- NOTE | 2019-04-11 14:47 | Consultation ---
History of Present Illness - Reason for Consult Consult date: 04/11/19 Reason for consult: psychiatric assessment - History of Present Psychiatric Illness Mr. Stone is a 58-year-old -[place] male, the patient is alert oriented x1 he is disheveled, he maintains eye contact. The patient states, "I am here because I am having suicidal ideations because I cannot get any help". The patient reports that he drinks daily and use Cocaine daily. He states, "I need rehab for drug and alcohol". The patient stated, " I am suicidal but I have no plan yet , but I will find one". He denies homicidal ideations. The patient report that he has not taken any medication in about a year and he does not remember the ones he was taking. He does report hearing voices calling his name he does report visual hallucinations of shadows. Patient reports that he is severely depressed he has no energy, he feels like he is in a world by himself and he has no help. The patient reports that he has not been sleeping or eating well. PAST PSYCHIATRIC HISTORY: , Diagnoses: Suicide attempts or Self-harm behavior :yes Prior psychiatric hospitalizations: yes Substance Abuse history: Cocaine Previous psychiatric medications tried: Unknown Outpatient treatment: No PAST MEDICAL HISTORY: Family Psychiatric History None reported or documented SOCIAL HISTORY Marital Status: Living Arrangements: Home Employment Status: Unemployed Access to guns/weapons: Education: [employer] History of Abuse: Denies Legal History: denies ROS: Constitutional: Negative for weight loss ENT: Negative for stridor Respiratory: Negative for cough or hemoptysis All other systems reviewed and are negative MENTAL STATUS General Appearance and Behavior: age appropriate, good eye contact, cooperative with questioning and polite Cooperation: Cooperative Psychomotor Behavior: within normal limits Mood: "frustrated" Affect and affective range: Congruent with stated mood Thought Process: Fluent/Logical and Goal-directed Thought Content: Within reality Speech: Normal volume and Regular rate and rhythm Intellectual Functioning Average Suicidal Ideation: without a plan Homicidal Ideation: Denies HI Impulse Control: intact Insight and Judgment: limited Memory: Normal Attention: Normal Orientation: alert and oriented x1 RECOMMENDATIONS MEDICATIONS: Risks, benefits and alternatives of medications discussed with the patient, questions answered and consent obtained from patient. PSYCHOTHERAPY: Supportive psychotherapy provided MEDICAL: Per primary team DELIRIUM PRECAUTIONS: Please re-orient patient frequently, keep lights on during the day, and minimize benzodiazepines and opiates as these medications could worsen patient's confusion. [employer] SOFTWARE DEVELOPMENT ENGINEER: DISPOSITION: Patient requests inpatient drug rehabilitation, patient suicidal LEGAL STATUS: 1013 FOLLOW-UP: Will follow Medications and Allergies Allergies Allergy/AdvReac Type Severity Reaction Status Date / Time No Known Allergies Allergy Verified 09/14/16 10:10 Home Medications Medication Instructions Recorded Confirmed Last Taken Type guaiFENesin [Robitussin] 200 mg PO Q4HR 5 Days udc 09/17/16 04/10/19 Unknown Rx amLODIPine 10 mg PO DAILY 30 Days #30 tab 03/22/19 04/10/19 Unknown Rx metFORMIN [Glucophage] 500 mg PO BID 30 Days #60 tablet 03/22/19 04/10/19 Unknown Rx Ibuprofen [Motrin] 800 mg PO Q8HR PRN #30 tablet 03/26/19 04/10/19 Unknown Rx hydroCHLOROthiazide [Hctz] 12.5 mg PO QDAY #30 capsule 03/26/19 04/10/19 Unknown Rx Mental Status Exam - Vital signs Last Vital Signs Temp 98.0 F 04/11/19 14:13 Pulse 71 04/11/19 14:13 Resp 18 04/11/19 14:13 BP 119/67 04/11/19 14:13 Pulse Ox 100 04/11/19 14:13 Results Result Diagrams: 04/10/19 09:36 04/10/19 09:36 All other labs normal.
[2019-04-11] MEDS ORDERED: INSULIN REGULAR, HUMAN 100 UNITS/1 ML SUB-Q ONE (15:18)
== END 2019-04-11 16:45 ==
LOC: ED 09:06 → EEVIPCON 09:06 → ED 04-11 16:45
DX: F31.9 Bipolar disorder, unspecified (principal); R45.851 Suicidal ideations; F17.200 Nicotine dependence, unspecified, uncomplicated; F14.10 Cocaine abuse, uncomplicated; E11.9 Type 2 diabetes mellitus without complications; I10 Essential (primary) hypertension
CPT/HCPCS: 36415; 80048; 80185; 80307; 81001; 82962; 85025; 96365; 96372; 99285; Q2009; 80320; G0480; J1815

== ENCOUNTER 2019-05-11 06:33 | Emergency (ER) | payer MEDICARE ==
[2019-05-11 06:41] VITALS: BP 137/84
[2019-05-11 07:24] LABS: Basophils # (Auto) 0.1 K/mm3 (0.0-0.1); Basophils % (Auto) 1.1 % (0.0-1.8); Eosinophils # (Auto) 0.1 K/mm3 (0.0-0.4); Hematocrit 35.8 % (35.5-45.6); Hemoglobin 12.1 gm/dl (11.8-15.2); Lymphocytes # (Auto) 1.4 K/mm3 (1.2-5.4); Lymphocytes % (Auto) 22.5 % (13.4-35.0); Mean Corpuscular HGB Conc 34 % (32-34); Mean Corpuscular Volume 86 fl (84-94); Monocytes # (Auto) 0.6 K/mm3 (0.0-0.8); Monocytes % (Auto) 10.1 % (0.0-7.3); Platelet Count 288 K/mm3 (140-440); Red Blood Count 4.19 M/mm3 (3.65-5.03); Red Cell Distribution Width 15.3 % (13.2-15.2)
[2019-05-11 07:45] LABS: BUN/Creatinine Ratio 12; Blood Urea Nitrogen 14 mg/dL (9-20); Calcium 9.1 mg/dL (8.4-10.2); Hemolysis Index 1
--- NOTE | 2019-05-11 10:00 | Emergency Department Report ---
ED Psych HPI - General Chief Complaint: Medical Clearance Stated Complaint: MEDICAL CLEARANCE Time Seen by Provider: 05/11/19 09:57 Source: patient Mode of arrival: Ambulatory Limitations: No Limitations - History of Present Illness Initial Comments: Mr. Stone is a 59-year-old male with history of diabetes mellitus, hypertension, bipolar disorder, seizure, pancreatitis who presents with need for medical clearance. He has was sent here from [facility]. He denies any suicidal homicidal ideation. Denies any pain. He is myrna te hungry at this time. Complaint: other (Plans to participate alcohol detox at [facility]) Associated Psychiatric Symptoms: none History of same: Yes Quality: constant Improves With: none, medication Context: significant life stressor Associated Symptoms: denies other symptoms Treatments Prior to Arrival: other (Acceptance to [facility]) - Related Data Previous Rx's Medication Instructions Recorded Last Taken Type guaiFENesin [Robitussin] 200 mg PO Q4HR 5 Days udc 09/17/16 Unknown Rx amLODIPine 10 mg PO DAILY 30 Days #30 tab 03/22/19 Unknown Rx metFORMIN [Glucophage] 500 mg PO BID 30 Days #60 tablet 03/22/19 Unknown Rx Ibuprofen [Motrin] 800 mg PO Q8HR PRN #30 tablet 03/26/19 Unknown Rx hydroCHLOROthiazide [Hctz] 12.5 mg PO QDAY #30 capsule 03/26/19 Unknown Rx Allergies Allergy/AdvReac Type Severity Reaction Status Date / Time No Known Allergies Allergy Verified 09/14/16 10:10 ED Review of Systems ROS: Stated complaint: MEDICAL CLEARANCE Other details as noted in HPI Comment: All other systems reviewed and negative Constitutional: denies: fever, malaise Respiratory: denies: cough Cardiovascular: denies: chest pain ED Past Medical Hx - Past Medical History Previous Medical History?: Yes Hx Hypertension: Yes Hx Diabetes: Yes Hx Seizures: Yes Hx Psychiatric Treatment: Yes (BIPOLAR) Additional medical history: PANCREATITIS - Surgical History Past Surgical History?: Yes Additional Surgical History: back and neck. hemorroids - Social History Smoking Status: Current Every Day Smoker Substance Use Type: None - Medications Home Medications: Home Medications Medication Instructions Recorded Confirmed Last Taken Type guaiFENesin [Robitussin] 200 mg PO Q4HR 5 Days udc 09/17/16 04/10/19 Unknown Rx amLODIPine 10 mg PO DAILY 30 Days #30 tab 01/25/20 02/13/20 Unknown Rx metFORMIN [Glucophage] 500 mg PO BID 30 Days #60 tablet 03/22/19 04/10/19 Unknown Rx Ibuprofen [Motrin] 800 mg PO Q8HR PRN #30 tablet 03/26/19 04/10/19 Unknown Rx hydroCHLOROthiazide [Hctz] 12.5 mg PO QDAY #30 capsule 03/26/19 04/10/19 Unknown Rx ED Physical Exam - General Limitations: No Limitations General appearance: alert, in no apparent distress - Head Head exam: Present: atraumatic, normocephalic - Eye Eye exam: Present: normal appearance - ENT ENT exam: Present: mucous membranes moist - Neck Neck exam: Present: normal inspection, full ROM - Respiratory Respiratory exam: Present: normal lung sounds bilaterally. Absent: respiratory distress, wheezes, rales, rhonchi - Cardiovascular Cardiovascular Exam: Present: regular rate, normal rhythm, normal heart sounds. Absent: systolic murmur, diastolic murmur, rubs, gallop - GI/Abdominal GI/Abdominal exam: Present: soft, normal bowel sounds. Absent: distended, tenderness, guarding, rebound - Rectal Rectal exam: Present: deferred - Extremities Exam Extremities exam: Present: normal inspection - Back Exam Back exam: Present: normal inspection - Neurological Exam Neurological exam: Present: alert, oriented X3 - Psychiatric Psychiatric exam: Present: normal affect, normal mood - Skin Skin exam: Present: warm, dry, intact, normal color. Absent: rash ED Course Vital Signs 05/11/19 06:37 Temperature 98.0 F Pulse Rate 97 H Respiratory 18 Rate Blood Pressure 137/84 O2 Sat by Pulse 97 Oximetry ED Medical Decision Making - Lab Data Result diagrams: 05/11/19 07:05 05/11/19 07:05 Laboratory Results - last 24 hr 05/11/19 05/11/19 05/11/19 07:03 07:05 07:05 WBC RBC Hgb Hct MCV MCH MCHC RDW Plt Count Lymph % (Auto) [place] % (Auto) Eos % (Auto) Baso % (Auto) Lymph # [place] # Eos # Baso # Seg Neutrophils % Seg Neutrophils # Sodium Potassium Chloride Carbon Dioxide Anion Gap BUN Creatinine Estimated GFR BUN/Creatinine Ratio Glucose POC Glucose 122 H Calcium Salicylates < 0.3 L Acetaminophen < 5.0 L Plasma/Serum Alcohol 05/11/19 05/11/19 05/11/19 07:05 07:05 07:05 WBC 6.4 RBC 4.19 Hgb 12.1 Hct 35.8 MCV 86 MCH 29 MCHC 34 RDW 15.3 H Plt Count 288 Lymph % (Auto) 22.5 [place] % (Auto) 10.1 H Eos % (Auto) 1.0 Baso % (Auto) 1.1 Lymph # 1.4 [place] # 0.6 Eos # 0.1 Baso # 0.1 Seg Neutrophils % 65.3 Seg Neutrophils # 4.2 Sodium 137 Potassium 3.5 L Chloride 103.6 Carbon Dioxide 17 L Anion Gap 20 BUN 14 Creatinine 1.2 Estimated GFR > 60 BUN/Creatinine Ratio 12 Glucose 135 H POC Glucose Calcium 9.1 Salicylates Acetaminophen Plasma/Serum Alcohol 0.04 - Medical Decision Making Mr. Stone is medically clear for outpatient detox. CBC chemistry serum tox came all within normal limits. No signs of alcohol withdrawal. Discharged to self-care Critical care attestation.: If time is entered above; I have spent that time in minutes in the direct care of this critically ill patient, excluding procedure time. ED Disposition Clinical Impression: Medical clearance for psychiatric admission Disposition: DC-01 TO HOME OR SELFCARE Is pt being admited?: No Does the pt Need Aspirin: No Condition: Stable Additional Instructions: Mr. Stone is is medically clear for psychiatric and rehabilitation care
== END 2019-05-11 10:08 | disposition home or self-care (01) ==
LOC: ED 06:33
DX: Z04.6 Encounter for general psychiatric examination, requested by authority (principal); F31.9 Bipolar disorder, unspecified; E11.9 Type 2 diabetes mellitus without complications; I10 Essential (primary) hypertension; F17.200 Nicotine dependence, unspecified, uncomplicated; Z86.69 Personal history of other diseases of the nervous system and sense organs; Z79.84 Long term (current) use of oral hypoglycemic drugs; Z79.899 Other long term (current) drug therapy
CPT/HCPCS: 36415; 80048; 80320; 82962; 85025; G0480

== ENCOUNTER 2019-05-18 05:30 | Emergency (ER) | payer MEDICARE ==
--- NOTE | 2019-05-18 12:29 | Emergency Department Report ---
ED General Adult HPI - General Chief complaint: Alcohol Stated complaint: MEDICAL CLEARANCE Time Seen by Provider: 05/18/19 11:38 Source: patient Mode of arrival: Ambulatory Limitations: No Limitations - History of Present Illness Initial comments: The patient presents to the emergency department with a chief complaint of alcohol and illicit drug abuse. Patient states that he wants to stop drinking and endorses drinking a gallon of liquor daily. Patient also states that he is a daily crack user as well. Upon further questioning it was discovered that the patient has a history of bipolar and has not taken medications in years. Patient states that he is hearing voices but cannot determine with a telling him to do. Patient denies homicidal or suicidal ideation. -: Gradual Severity scale (0 -10): 0 Consistency: constant Improves with: none Worsens with: none Associated Symptoms: denies other symptoms Treatments Prior to Arrival: none - Related Data Previous Rx's Medication Instructions Recorded Last Taken Type guaiFENesin [Robitussin] 200 mg PO Q4HR 5 Days udc 09/17/16 Unknown Rx amLODIPine 10 mg PO DAILY 30 Days #30 tab 03/22/19 Unknown Rx metFORMIN [Glucophage] 500 mg PO BID 30 Days #60 tablet 03/22/19 Unknown Rx Ibuprofen [Motrin] 800 mg PO Q8HR PRN #30 tablet 03/26/19 Unknown Rx hydroCHLOROthiazide [Hctz] 12.5 mg PO QDAY #30 capsule 03/26/19 Unknown Rx Allergies Allergy/AdvReac Type Severity Reaction Status Date / Time No Known Allergies Allergy Verified 09/14/16 10:10 ED Review of Systems ROS: Stated complaint: MEDICAL CLEARANCE Other details as noted in HPI Constitutional: denies: chills, fever Eyes: denies: eye pain, eye discharge, vision change ENT: denies: ear pain, throat pain Respiratory: denies: cough, shortness of breath, wheezing Cardiovascular: denies: chest pain, palpitations Endocrine: no symptoms reported Gastrointestinal: denies: abdominal pain, nausea, diarrhea Genitourinary: denies: urgency, dysuria Musculoskeletal: denies: back pain, joint swelling, arthralgia Skin: denies: rash, lesions Neurological: denies: headache, weakness, paresthesias Psychiatric: auditory hallucinations. denies: anxiety, depression Hematological/Lymphatic: denies: easy bleeding, easy bruising ED Past Medical Hx - Past Medical History Previous Medical History?: Yes Hx Hypertension: Yes Hx Diabetes: Yes Hx Seizures: Yes Hx Psychiatric Treatment: Yes (BIPOLAR) Additional medical history: PANCREATITIS - Surgical History Past Surgical History?: Yes Additional Surgical History: back and neck. hemorroids - Social History Smoking Status: Current Every Day Smoker Substance Use Type: None - Medications Home Medications: Home Medications Medication Instructions Recorded Confirmed Last Taken Type guaiFENesin [Robitussin] 200 mg PO Q4HR 5 Days udc 09/17/16 04/10/19 Unknown Rx amLODIPine 10 mg PO DAILY 30 Days #30 tab 03/22/19 04/10/19 Unknown Rx metFORMIN [Glucophage] 500 mg PO BID 30 Days #60 tablet 03/22/19 04/10/19 Unknown Rx Ibuprofen [Motrin] 800 mg PO Q8HR PRN #30 tablet 03/26/19 04/10/19 Unknown Rx hydroCHLOROthiazide [Hctz] 12.5 mg PO QDAY #30 capsule 03/26/19 04/10/19 Unknown Rx ED Physical Exam - General Limitations: No Limitations General appearance: alert, in no apparent distress - Head Head exam: Present: atraumatic, normocephalic - Eye Eye exam: Present: normal appearance, PERRL, EOMI - ENT ENT exam: Present: mucous membranes moist - Neck Neck exam: Present: normal inspection - Respiratory Respiratory exam: Present: normal lung sounds bilaterally. Absent: respiratory distress - Cardiovascular Cardiovascular Exam: Present: regular rate, normal rhythm. Absent: systolic murmur, diastolic murmur, rubs, gallop - GI/Abdominal GI/Abdominal exam: Present: soft, normal bowel sounds - Rectal Rectal exam: Present: deferred - Extremities Exam Extremities exam: Present: normal inspection - Back Exam Back exam: Present: normal inspection - Neurological Exam Neurological exam: Present: alert, oriented X3, CN II-XII intact. Absent: motor sensory deficit - Psychiatric Psychiatric exam: Present: normal affect, normal mood - Skin Skin exam: Present: warm, dry, intact, normal color. Absent: rash ED Course Vital Signs 05/18/19 05/18/19 08:15 12:17 Temperature 97.9 F 98.6 F Pulse Rate 77 88 Respiratory 20 18 Rate Blood Pressure 178/90 Blood Pressure 190/120 [Left] O2 Sat by Pulse 100 98 Oximetry ED Medical Decision Making - Lab Data Result diagrams: 05/18/19 12:47 05/18/19 12:47 Lab Results 05/18/19 05/18/19 05/18/19 Range/Units 12:47 12:47 12:47 WBC 6.4 (4.5-11.0) K/mm3 RBC 4.36 (3.65-5.03) M/mm3 Hgb 12.4 (11.8-15.2) gm/dl Hct 37.2 (35.5-45.6) % MCV 85 (84-94) fl MCH 28 (28-32) pg MCHC 33 (32-34) % RDW 15.5 H (13.2-15.2) % Plt Count 321 (140-440) K/mm3 Lymph % (Auto) 30.3 (13.4-35.0) % Gonzales % (Auto) 8.8 H (0.0-7.3) % Eos % (Auto) 3.7 (0.0-4.3) % Baso % (Auto) 1.2 (0.0-1.8) % Lymph # 1.9 (1.2-5.4) K/mm3 Gonzales # 0.6 (0.0-0.8) K/mm3 Eos # 0.2 (0.0-0.4) K/mm3 Baso # 0.1 (0.0-0.1) K/mm3 Seg Neutrophils % 56.0 (40.0-70.0) % Seg Neutrophils # 3.6 (1.8-7.7) K/mm3 Sodium (137-145) mmol/L Potassium (3.6-5.0) mmol/L Chloride (98-107) mmol/L Carbon Dioxide (22-30) mmol/L Anion Gap mmol/L BUN (9-20) mg/dL Creatinine (0.8-1.5) mg/dL Estimated GFR ml/min BUN/Creatinine Ratio % Glucose (75-100) mg/dL Calcium (8.4-10.2) mg/dL Total Bilirubin (0.1-1.2) mg/dL AST (5-40) units/L ALT (7-56) units/L Alkaline Phosphatase (35-129) units/L Total Protein (6.3-8.2) g/dL Albumin (3.9-5) g/dL Albumin/Globulin Ratio % Salicylates < 0.3 L (2.8-20.0) mg/dL Acetaminophen < 5.0 L (10.0-30.0) ug/mL Plasma/Serum Alcohol (0-0.07) % 05/18/19 05/18/19 Range/Units 12:47 12:47 WBC (4.5-11.0) K/mm3 RBC (3.65-5.03) M/mm3 Hgb (11.8-15.2) gm/dl Hct (35.5-45.6) % MCV (84-94) fl MCH (28-32) pg MCHC (32-34) % RDW (13.2-15.2) % Plt Count (140-440) K/mm3 Lymph % (Auto) (13.4-35.0) % Gonzales % (Auto) (0.0-7.3) % Eos % (Auto) (0.0-4.3) % Baso % (Auto) (0.0-1.8) % Lymph # (1.2-5.4) K/mm3 Gonzales # (0.0-0.8) K/mm3 Eos # (0.0-0.4) K/mm3 Baso # (0.0-0.1) K/mm3 Seg Neutrophils % (40.0-70.0) % Seg Neutrophils # (1.8-7.7) K/mm3 Sodium 141 (137-145) mmol/L Potassium 3.5 L (3.6-5.0) mmol/L Chloride 106.6 (98-107) mmol/L Carbon Dioxide 18 L (22-30) mmol/L Anion Gap 20 mmol/L BUN 10 (9-20) mg/dL Creatinine 1.0 (0.8-1.5) mg/dL Estimated GFR > 60 ml/min BUN/Creatinine Ratio 10 % Glucose 140 H (75-100) mg/dL Calcium 9.0 (8.4-10.2) mg/dL Total Bilirubin 0.60 (0.1-1.2) mg/dL AST 26 (5-40) units/L ALT 17 (7-56) units/L Alkaline Phosphatase 120 (35-129) units/L Total Protein 7.3 (6.3-8.2) g/dL Albumin 4.0 (3.9-5) g/dL Albumin/Globulin Ratio 1.2 % Salicylates (2.8-20.0) mg/dL Acetaminophen (10.0-30.0) ug/mL Plasma/Serum Alcohol < 0.01 (0-0.07) % - Medical Decision Making Patient is medically cleared Mental health evaluation is pending Critical care attestation.: If time is entered above; I have spent that time in minutes in the direct care of this critically ill patient, excluding procedure time. ED Disposition Clinical Impression: Suicidal ideation, Alcohol abuse, Illicit drug use Disposition: DC/TX-65 PSY HOSP/PSY UNIT Is pt being admited?: No Does the pt Need Aspirin: No Condition: Stable Referrals: PRIMARY CARE, [Primary Care Provider] - 3-5 Days
[2019-05-18] MEDS ORDERED: LORazepam 2 MG TAB PO PRN ×2 (12:35)
[2019-05-18] MEDS ORDERED: LORazepam 2 MG/ML VIAL IV PRN (12:35)
[2019-05-18] MEDS ORDERED: chlordiazePOXIDE 25 MG CAP PO PRN ×2 (12:35)
[2019-05-18] MEDS ORDERED: hydroCHLOROthiazide 25 MG TAB PO ONE (12:47)
[2019-05-18 13:28] LABS: Basophils # (Auto) 0.1 K/mm3 (0.0-0.1); Basophils % (Auto) 1.2 % (0.0-1.8); Eosinophils # (Auto) 0.2 K/mm3 (0.0-0.4); Eosinophils % (Auto) 3.7 % (0.0-4.3); Hematocrit 37.2 % (35.5-45.6); Hemoglobin 12.4 gm/dl (11.8-15.2); Lymphocytes # (Auto) 1.9 K/mm3 (1.2-5.4); Lymphocytes % (Auto) 30.3 % (13.4-35.0); Mean Corpuscular HGB Conc 33 % (32-34); Mean Corpuscular Volume 85 fl (84-94); Monocytes # (Auto) 0.6 K/mm3 (0.0-0.8); Monocytes % (Auto) 8.8 % (0.0-7.3); Platelet Count 321 K/mm3 (140-440); Red Blood Count 4.36 M/mm3 (3.65-5.03); Red Cell Distribution Width 15.5 % (13.2-15.2)
[2019-05-18 13:55] LABS: Alanine Aminotransferase 17 units/L (7-56); BUN/Creatinine Ratio 10; Blood Urea Nitrogen 10 mg/dL (9-20); Hemolysis Index 4
[2019-05-18 21:21] VITALS: BP 155/100
== END 2019-05-18 21:24 ==
LOC: ED 05:30 → EEVIPCON 05:30 → ED 21:24
DX: R45.851 Suicidal ideations (principal); F10.10 Alcohol abuse, uncomplicated; F19.10 Other psychoactive substance abuse, uncomplicated; Y90.0 Blood alcohol level of less than 20 mg/100 ml; I10 Essential (primary) hypertension; E11.9 Type 2 diabetes mellitus without complications; F31.9 Bipolar disorder, unspecified; F17.200 Nicotine dependence, unspecified, uncomplicated
CPT/HCPCS: 36415; 80053; 80320; 85025; 99284; G0480

== ENCOUNTER 2020-08-23 15:30 | Inpatient (IN) | payer MEDICARE ==
[2020-08-24 00:27] LABS: Hepatitis B Surface Antigen Non-Reactive (Negative); Hepatitis C Virus Antibody Non-Reactive (NonReactive)
[2020-08-24 00:52] LABS: Alanine Aminotransferase 20 units/L (7-56); Albumin 3.8 g/dL (3.9-5); BUN/Creatinine Ratio 18; Blood Urea Nitrogen 20 mg/dL (9-20); Calcium 9.7 mg/dL (8.4-10.2); Chol/HDL Ratio 2.13 %; HDL Cholesterol 53 mg/dL (40-59); Hemolysis Index 6; LDL Cholesterol,Direct 62 mg/dL (50-130)
--- NOTE | 2020-08-24 08:00 | History and Physical Report ---
GP History & Physical - History of Present Illness Date of admission: 08/23/20 Reason for Admission: Danger to self Chief Complaint: Schizophrenia: Hearing voices History of Present Illness: The Patient is a 60 year old male with a history of Depression, Cocaine and Alcohol use disorder, Schizophrenia and multiple inpatient admissions. The patient is unemployed, homeless and disabled who presents to the ED with depressed mood and suicidal thoughts. In my interview with the patient he reports that he stopped taking medications about a year ago however, he was unable to recall what medications he was taking. Patient endorses auditory rohan lucinations without command "they are just calling my name." He denies any current suicidal/homicidal ideation. PAST PSYCHIATRIC HISTORY: Diagnoses: schizophrenia, Depression, Alcohol, and Cocaine use disorder Suicide attempts or Self-harm behavior: denies Prior psychiatric hospitalizations: yes Substance Abuse history: denies Previous psychiatric medications tried: unknown Outpatient treatment: yes PAST MEDICAL HISTORY: Hypertension, Diabetes Mellitus Family Psychiatric History: None reported or documented SOCIAL HISTORY Marital Status: Living Arrangements: homeless Employment Status: unemployed Access to guns/weapons: n/a Education: 9th grade History of Abuse: n/a Legal History: n/a REVIEW OF SYSTEMS Constitutional: Negative for weight loss ENT: Negative for stridor Respiratory: Negative for cough or hemoptysis All other systems reviewed and are negative MENTAL STATUS EXAMINATION General Appearance and Behavior: Age appropriate, good hygiene, wearing appropriate clothes, uncooperative polite with questioning. Cooperation: cooperative Psychomotor Behavior: Psychomotor agitation Mood: "depressed" Affect and affective range: Guarded Thought Process: goal directed Thought Content: Disorganized Speech: Normal volume, Regular rate and rhythm Intellectual Functioning: Poor Suicidal Ideation: Denied Homicidal Ideation: Denied hallucination: Auditory Impulse Control: impaired Insight and Judgment: limited Memory: memory impaired Attention:Distractible Orientation: Alert and oriented Diagnoses:Schizophrenia F20.9 Legal Status: Voluntary, DPOA for Mental Health Patient Problems: Current Active Problems Schizophrenia (Acute) Schizophrenia (Acute) Reaction to Hospitalization: Accepting Medications and Allergies Allergies Allergy/AdvReac Type Severity Reaction Status Date / Time No Known Allergies Allergy Verified 09/14/16 10:10 Home Medications Medication Instructions Recorded Confirmed Last Taken Type Citalopram [celeXA] 10 mg PO QDAY #30 tablet 05/23/19 08/24/20 Unknown Rx amLODIPine 10 mg PO DAILY 30 Days #30 tab 05/23/19 08/24/20 Unknown Rx amLODIPine 10 mg PO DAILY #30 tablet 08/23/20 08/24/20 Unknown Rx hydroCHLOROthiazide [HCTZ] 12.5 mg PO QDAY #30 capsule 08/23/20 08/24/20 Unknown Rx metFORMIN [Glucophage] 500 mg PO BID 30 Days #60 tablet 08/23/20 08/24/20 Unknown Rx Active Meds: Active Medications Amlodipine Besylate (Amlodipine 10 Mg Tab) 10 mg PO DAILY [facility] Citalopram Hydrobromide (Citalopram 10 Mg Tab) 10 mg PO QDAY [facility] Hydrochlorothiazide (Hydrochlorothiazide 12.5 Mg Cap) 12.5 mg PO QDAY [facility] Metformin HCl (Metformin 500 Mg Tab) 500 mg PO BIDDIAB [facility] Substance History - Substance History Drug Use: cocaine, marijuana Alcohol Use: Yes Past psychiatric history - Past Medical History Past Medical History: diabetes, hypertension, other - past Psychiatric treatment and history Psych: Bipolar, Schizophrenia - Social History Social history: Results - Results Labs/Vitals: Laboratory Last Values Sodium 137 mmol/L (137-145) 08/23/20 23:53 Potassium 4.1 mmol/L (3.6-5.0) 08/23/20 23:53 Chloride 99.3 mmol/L (98-107) 08/23/20 23:53 Carbon Dioxide 26 mmol/L (22-30) 08/23/20 23:53 Anion Gap 16 mmol/L 08/23/20 23:53 BUN 20 mg/dL (9-20) 08/23/20 23:53 Creatinine 1.1 mg/dL (0.8-1.3) 08/23/20 23:53 Estimated GFR > 60 ml/min 08/23/20 23:53 BUN/Creatinine Ratio 18 % 08/23/20 23:53 Glucose 179 mg/dL (75-100) H 08/23/20 23:53 POC Glucose 156 mg/dL (70-105) H 08/24/20 06:17 Hemoglobin A1c 7.7 % (4-6) H 08/23/20 23:53 Calcium 9.7 mg/dL (8.4-10.2) 08/23/20 23:53 Total Bilirubin 0.30 mg/dL (0.1-1.2) 08/23/20 23:53 AST 22 units/L (5-40) 08/23/20 23:53 ALT 20 units/L (7-56) 08/23/20 23:53 Alkaline Phosphatase 100 units/L (35-129) 08/23/20 23:53 Total Protein 7.1 g/dL (6.3-8.2) 08/23/20 23:53 Albumin 3.8 g/dL (3.9-5) L 08/23/20 23:53 Albumin/Globulin Ratio 1.2 % 08/23/20 23:53 Triglycerides 57 mg/dL (2-149) 08/23/20 23:53 Cholesterol 113 mg/dL (50-199) 08/23/20 23:53 LDL Cholesterol Direct 62 mg/dL (50-130) 08/23/20 23:53 HDL Cholesterol 53 mg/dL (40-59) 08/23/20 23:53 Cholesterol/HDL Ratio 2.13 % 08/23/20 23:53 TSH 2.360 mlU/mL (0.270-4.200) 08/23/20 23:53 Hepatitis A IgM Ab Non-reactive (NonReactive) 08/23/20 23:53 Hep Bs Antigen Non-reactive (Negative) 08/23/20 23:53 Hep B Core IgM Ab Non-reactive (NonReactive) 08/23/20 23:53 Hepatitis C Antibody Non-reactive (NonReactive) 08/23/20 23:53 Last Vital Signs Temp 97.8 F 08/24/20 00:07 Pulse 85 08/24/20 00:07 Resp 16 08/24/20 00:07 BP 129/87 08/24/20 00:07 Pulse Ox 94 08/24/20 00:07 Physical Examination - Constitutional Vitals: Vital Signs Temp Pulse Resp BP Pulse Ox 97.8 F 85 16 129/87 94 08/24/20 00:07 08/24/20 00:07 08/24/20 00:07 08/24/20 00:07 08/24/20 00:07 Temperature -Last 24 Hours Temperature 97.8 F General appearance: Present: no acute distress - Psychiatric Psychiatric: cooperative Mental Status Exam - Vital signs Last Vital Signs Temp 97.8 F 08/24/20 00:07 Pulse 85 08/24/20 00:07 Resp 16 08/24/20 00:07 BP 129/87 08/24/20 00:07 Pulse Ox 94 08/24/20 00:07 - Exam Orientation: person Mood: calm Thought content: delusions Thought Process: Disorganized Perceptions: auditory, hallucinations Speech: normal rate and pattern Concentration: distractible Motor activity: normal Level of consciousness: alert Memory: Remote Impaired Interaction: cooperative Assessment and Plan - Psychiatric problem (1) Schizophrenia Current Visit: Yes Status: Acute Qualifiers: Schizophrenia type: unspecified Qualified Code(s): F20.9 - Schizophrenia, unspecified (2) Schizophrenia Current Visit: Yes Status: Acute Physician Certification - Certification Statement Physician Certification Statement: This is an acknowledgement statement that ALEXY KUMAR is a 60 year old M who requires inpatient psychiatric admission for treatment which could reasonably be expected to improve the patient's condition for Estimated period of time patient will need to remain in the hospital: [ ] Plan for post-hospital care: [ ]
[2020-08-24] MEDS: amLODIPine 10 MG TAB PO SCH (11:06)
[2020-08-24] MEDS: hydroCHLOROthiazide 12.5 MG CAP PO SCH (11:06)
[2020-08-24] MEDS: CITALOPRAM 10 MG TAB PO SCH (11:06)
[2020-08-24] MEDS: metFORMIN 500 MG TAB PO SCH ×2 (11:08→17:20)
--- NOTE | 2020-08-24 19:01 | Consultation ---
History of Present Illness - Reason for Consult Consult date: 08/24/20 Medical consult Requesting physician: TRINH RANDOLPH - History of Present Illness 60-year-old male patient with significant past medical history of schizophrenia hypertension diabetes mellitus seizure disorder bipolar was admitted by Poppy bautista for further evaluation and management of patient's psych condition. Hospitalist service was requested for medical consult. When I interviewed the patient patient reports that he has diabetes hypertension and seizure disorders Patient says he uses his medications regularly Patient denies any chest pain shortness of breath, denies headache dizziness, de nies nausea vomiting or abdominal pain Patient denies any shortness of breath or cough Patient says he feels slightly better here and is anxious to go home Past History Past Medical History: diabetes, hypertension, other (Pancreatitis) Past Surgical History: Other (Back and neck surgery and hemorrhoids) Social history: , smoking (Ongoing tobacco use), other (Alcohol and cocaine use) Family history: no significant family history Medications and Allergies Allergies Allergy/AdvReac Type Severity Reaction Status Date / Time No Known Allergies Allergy Verified 09/14/16 10:10 Home Medications Medication Instructions Recorded Confirmed Last Taken Type Citalopram [celeXA] 10 mg PO QDAY #30 tablet 05/23/19 08/24/20 Unknown Rx amLODIPine 10 mg PO DAILY 30 Days #30 tab 05/23/19 08/24/20 Unknown Rx amLODIPine 10 mg PO DAILY #30 tablet 08/23/20 08/24/20 Unknown Rx hydroCHLOROthiazide [HCTZ] 12.5 mg PO QDAY #30 capsule 08/23/20 08/24/20 Unknown Rx metFORMIN [Glucophage] 500 mg PO BID 30 Days #60 tablet 08/23/20 08/24/20 Unknown Rx Active Meds: Active Medications Amlodipine Besylate (Amlodipine 10 Mg Tab) 10 mg PO DAILY [facility] Last Admin: 08/24/20 11:06 Dose: 10 mg Documented by: Citalopram Hydrobromide (Citalopram 10 Mg Tab) 10 mg PO QDAY [facility] Last Admin: 08/24/20 11:06 Dose: 10 mg Documented by: Hydrochlorothiazide (Hydrochlorothiazide 12.5 Mg Cap) 12.5 mg PO QDAY [facility] Last Admin: 08/24/20 11:06 Dose: 12.5 mg Documented by: Metformin HCl (Metformin 500 Mg Tab) 500 mg PO BIDDIAB [facility] Last Admin: 08/24/20 17:20 Dose: 500 mg Documented by: Review of Systems Constitutional: fatigue, weakness, no weight loss, no weight gain Ears, nose, mouth and throat: no nasal congestion, no nasal discharge Cardiovascular: no chest pain, no palpitations, no shortness of breath Respiratory: no cough, no shortness of breath Gastrointestinal: no abdominal pain, no nausea, no vomiting Genitourinary Male: no dysuria, no hematuria Musculoskeletal: no neck pain, no myalgias, no arthritis Integumentary: no rash, no lesions Neurological: weakness, seizures Psychiatric: other (Bipolar, schizophrenia), no anxiety, no depression Hematologic/Lymphatic: no easy bruising, no easy bleeding Allergic/Immunologic: no urticaria, no allergic rhinitis Exam - Constitutional Vitals: Temp Pulse Resp BP Pulse Ox 98.0 F 76 16 160/86 96 08/24/20 10:20 08/24/20 11:06 08/24/20 10:20 08/24/20 11:08/24/20 10:20 General appearance: Present: no acute distress, well-nourished - EENT Eyes: Present: PERRL, EOM intact - Neck Neck: Present: supple, normal ROM - Respiratory Respiratory effort: normal Respiratory: bilateral: diminished, negative: rales, rhonchi, wheezing - Cardiovascular Rhythm: regular Heart Sounds: Present: S1 & S2 - Extremities Extremities: no ischemia, No edema, normal temperature - Abdominal General gastrointestinal: Present: soft, non-tender, non-distended, normal bowel sounds - Integumentary Integumentary: Present: clear, warm - Musculoskeletal Musculoskeletal: strength equal bilaterally - Psychiatric Psychiatric: appropriate mood/affect, cooperative, other (Anxious) - Neurologic Neurologic: moves all extremities Results - Labs CBC & Chem 7: 08/23/20 23:53 Labs: Abnormal lab results 08/23/20 08/23/20 08/24/20 Range/Units 23:53 23:53 00:05 Glucose 179 H (75-100) mg/dL POC Glucose 202 H (70-105) mg/dL Hemoglobin A1c 7.7 H (4-6) % Albumin 3.8 L (3.9-5) g/dL 06/29/21 06/29/21 06/29/21 Range/Units 06:17 11:10 16:32 Glucose (75-100) mg/dL POC Glucose 156 H 317 H 112 H (70-105) mg/dL Hemoglobin A1c (4-6) % Albumin (3.9-5) g/dL Assessment and Plan --Hypertension; Well controlled, continue amlodipine and hydrochlorothiazide Closely monitor blood pressures adjust as needed --Type 2 diabetes mellitus; Accu-Chek sliding scale coverage Resume Metformin, ADA diet --History of seizure disorder; Seizure precautions, continue Depakote Cannot drive until cleared by neurologist --History of bipolar/schizophrenia; Management per psych --DVT prophylaxis; SCDs while resting --Full CODE STATUS; We will closely monitor the patient and adjust the management as needed Thank you for this consultation, we will follow the patient along with you as needed Call us with questions or concerns
--- NOTE | 2020-08-25 09:16 | Progress Note ---
Subjective Date of service: 08/25/20 Subjective Comment: Per Nurse Note: Last evening the patient was irritable. He napped 1st part of the shift. He denies si/hi/ah/vh. He has a good appetite and is medication compliant. Overnight the patient rested quietly all night. He slept 8 hours. Will continue to monitor patient for safety. Patient was seen eating breakfast in the activity room. Patient reports having difficulty maintaining sleep, reports getting about 2 hours of sleep last night. He reports mood as "OK." Patient denies any current suicidal/homicidal ideation and denies AVHs. REVIEW OF SYSTEMS Constitutional: Negative for weight loss ENT: Negative for stridor Respiratory: Negative for cough or hemoptysis All other systems reviewed and are negative MENTAL STATUS EXAMINATION General Appearance and Behavior: Age appropriate, good hygiene, wearing appropriate clothes, uncooperative polite with questioning. Cooperation: cooperative Psychomotor Behavior: Psychomotor agitation Mood: "OK" Affect and affective range: Guarded Thought Process: goal directed Thought Content: Denies SI Speech: Normal volume, Regular rate and rhythm Intellectual Functioning: Average Suicidal Ideation: Denied Homicidal Ideation: Denied hallucination: Denies Impulse Control: impaired Insight and Judgment: limited Memory: memory impaired Attention:Distractible Orientation: Alert and oriented Diagnoses:Schizophrenia F20.9 Legal Status: Voluntary, DPOA for Mental Health Patient Problems: Current Active Problems Schizophrenia (Acute) Schizophrenia (Acute) Reaction to Hospitalization: Accepting Treatment Plan Patient admitted for inpatient psychiatric evaluation, medication adjustment and close monitoring The patient's behavior, mood, sleep and appetite will be closely monitored. Patient enrolled in individual and group therapeutic sessions and encouraged to attend. Patient provided with a safe and structured environment. Patient's physical health needs will be addressed by the Hospitalist. Hospitalist Consulted Labs including CBC, CMP, Lipid profile and Hemoglobin A1C levels ordered for baseline reference Social Assessment will be completed and the Medical Support Assistant will work with patient and family to ensure a suitable and safe disposition Medication adjustment will be made as clinically indicated Restarted home medications Continue Home Meds Start- Trazodone 50mg po QHS Start-Depakote 125mg po BID Usual Wellness Latter Day/Preservation: - Start Melatonin 5 mg po QHS to promote circadian rhythm - Start Moca-3 for brain health, reduce impulsivity, and as adjunctive treatment for mood disorder, continue upon discharge given overall benefits. The patient agreed on the treatment plan, understood the risk, benefit, alternative treatment, potential consequence of no treatment, and gave informed consent. Estimated days: 7 Post hospital care: primary care provider, psychiatric provider This certifies that the patient will be treated for agitation Case staffed with Dr. Celestin Assessment and Plan - Patient Problems (1) Schizophrenia Current Visit: Yes Status: Acute Qualifiers: Schizophrenia type: unspecified Qualified Code(s): F20.9 - Schizophrenia, unspecified (2) Schizophrenia Current Visit: Yes Status: Acute Medications and Allergies Allergies Allergy/AdvReac Type Severity Reaction Status Date / Time No Known Allergies Allergy Verified 09/14/16 10:10 Home Medications Medication Instructions Recorded Confirmed Last Taken Type Citalopram [celeXA] 10 mg PO QDAY #30 tablet 05/23/19 08/24/20 Unknown Rx amLODIPine 10 mg PO DAILY 30 Days #30 tab 05/23/19 08/24/20 Unknown Rx amLODIPine 10 mg PO DAILY #30 tablet 08/23/20 08/24/20 Unknown Rx hydroCHLOROthiazide [HCTZ] 12.5 mg PO QDAY #30 capsule 08/23/20 08/24/20 Unknown Rx metFORMIN [Glucophage] 500 mg PO BID 30 Days #60 tablet 08/23/20 08/24/20 Unknown Rx Active Meds: Active Medications Amlodipine Besylate (Amlodipine 10 Mg Tab) 10 mg PO DAILY [facility] Last Admin: 08/24/20 11:06 Dose: 10 mg Documented by: Citalopram Hydrobromide (Citalopram 10 Mg Tab) 10 mg PO QDAY [facility] Last Admin: 08/24/20 11:06 Dose: 10 mg Documented by: Hydrochlorothiazide (Hydrochlorothiazide 12.5 Mg Cap) 12.5 mg PO QDAY [facility] Last Admin: 08/24/20 11:06 Dose: 12.5 mg Documented by: Metformin HCl (Metformin 500 Mg Tab) 500 mg PO BIDDIAB [facility] Last Admin: 08/24/20 17:20 Dose: 500 mg Documented by: Results - Results Labs/Vitals: Laboratory Last Values Sodium 137 mmol/L (137-145) 08/23/20 23:53 Potassium 4.1 mmol/L (3.6-5.0) 08/23/20 23:53 Chloride 99.3 mmol/L (98-107) 08/23/20 23:53 Carbon Dioxide 26 mmol/L (22-30) 08/23/20 23:53 Anion Gap 16 mmol/L 08/23/20 23:53 BUN 20 mg/dL (9-20) 08/23/20 23:53 Creatinine 1.1 mg/dL (0.8-1.3) 08/23/20 23:53 Estimated GFR > 60 ml/min 08/23/20 23:53 BUN/Creatinine Ratio 18 % 08/23/20 23:53 Glucose 179 mg/dL (75-100) H 08/23/20 23:53 POC Glucose 148 mg/dL (70-105) H 08/25/20 07:58 Hemoglobin A1c 7.7 % (4-6) H 08/23/20 23:53 Calcium 9.7 mg/dL (8.4-10.2) 08/23/20 23:53 Total Bilirubin 0.30 mg/dL (0.1-1.2) 08/23/20 23:53 AST 22 units/L (5-40) 08/23/20 23:53 ALT 20 units/L (7-56) 08/23/20 23:53 Alkaline Phosphatase 100 units/L (35-129) 08/23/20 23:53 Total Protein 7.1 g/dL (6.3-8.2) 08/23/20 23:53 Albumin 3.8 g/dL (3.9-5) L 08/23/20 23:53 Albumin/Globulin Ratio 1.2 % 08/23/20 23:53 Triglycerides 57 mg/dL (2-149) 08/23/20 23:53 Cholesterol 113 mg/dL (50-199) 08/23/20 23:53 LDL Cholesterol Direct 62 mg/dL (50-130) 08/23/20 23:53 HDL Cholesterol 53 mg/dL (40-59) 08/23/20 23:53 Cholesterol/HDL Ratio 2.13 % 08/23/20 23:53 TSH 2.360 mlU/mL (0.270-4.200) 08/23/20 23:53 Hepatitis A IgM Ab Non-reactive (NonReactive) 08/23/20 23:53 Hep Bs Antigen Non-reactive (Negative) 08/23/20 23:53 Hep B Core IgM Ab Non-reactive (NonReactive) 08/23/20 23:53 Hepatitis C Antibody Non-reactive (NonReactive) 08/23/20 23:53 Last Vital Signs Temp 98.0 F 08/24/20 22:00 Pulse 82 08/24/20 22:00 Resp 16 08/24/20 22:00 BP 138/92 08/24/20 22:00 Pulse Ox 96 08/24/20 22:00
[2020-08-25] MEDS: CITALOPRAM 10 MG TAB PO SCH (09:39)
[2020-08-25] MEDS: amLODIPine 10 MG TAB PO SCH (09:39)
[2020-08-25] MEDS: hydroCHLOROthiazide 12.5 MG CAP PO SCH (09:39)
[2020-08-25] MEDS: metFORMIN 500 MG TAB PO SCH ×2 (09:39→17:07)
[2020-08-25] MEDS: DIVALPROEX DR 125 MG TAB PO SCH ×2 (09:52→21:12)
[2020-08-25] MEDS ORDERED: traZODone 50 MG TAB PO SCH (22:00)
[2020-08-26 08:49] VITALS: BP 149/86
--- NOTE | 2020-08-26 09:02 | Progress Note ---
Subjective Date of service: 08/26/20 Subjective Comment: Per Nurse Note: pt is appropriate on the unit last evening, interacting well with peers, medication compliant, good appetite, slept all night, no distress noted, will continue to monitor for safety. 08/26/2020- Patient was seen eating breakfast in the activity room. Patient reports doing well. He states sleep has improved. Patient denies any current suicidal/homicidal ideation and denies AVHs. 08/25/2020-Patient was seen eating breakfast in the activity room. Patient reports having difficulty maintaining sleep, reports getting about 2 hours of sleep last night. He reports mood as "good" Patient denies any current suicidal/homicidal ideation and denies AVHs. REVIEW OF SYSTEMS Constitutional: Negative for weight loss ENT: Negative for stridor Respiratory: Negative for cough or hemoptysis All other systems reviewed and are negative MENTAL STATUS EXAMINATION General Appearance and Behavior: Age appropriate, good hygiene, wearing appropriate clothes, uncooperative polite with questioning. Cooperation: cooperative Psychomotor Behavior: Psychomotor agitation Mood: "good" Affect and affective range: Guarded Thought Process: goal directed Thought Content: Denies SI Speech: Normal volume, Regular rate and rhythm Intellectual Functioning: Average Suicidal Ideation: Denied Homicidal Ideation: Denied hallucination: Denies Impulse Control: impaired Insight and Judgment: limited Memory: memory impaired Attention:Distractible Orientation: Alert and oriented Diagnoses:Schizophrenia F20.9 Legal Status: Voluntary, DPOA for Mental Health Patient Problems: Current Active Problems Schizophrenia (Acute) Reaction to Hospitalization: Accepting Treatment Plan Patient admitted for inpatient psychiatric evaluation, medication adjustment and close monitoring The patient's behavior, mood, sleep and appetite will be closely monitored. Patient enrolled in individual and group therapeutic sessions and encouraged to attend. Patient provided with a safe and structured environment. Patient's physical health needs will be addressed by the Hospitalist. Hospitalist Consulted Labs including CBC, CMP, Lipid profile and Hemoglobin A1C levels ordered for baseline reference Social Assessment will be completed and the Investigative Research Specialist will work with patient and family to ensure a suitable and safe disposition Medication adjustment will be made as clinically indicated Restarted home medications No changes Continue- Trazodone 50mg po QHS Continue-Depakote 125mg po BID Usual Wellness Alevism/Preservation: - Start Melatonin 5 mg po QHS to promote circadian rhythm - Start Grulla-3 for brain health, reduce impulsivity, and as adjunctive treatment for mood disorder, continue upon discharge given overall benefits. The patient agreed on the treatment plan, understood the risk, benefit, alternative treatment, potential consequence of no treatment, and gave informed consent. Estimated days: 2 Post hospital care: primary care provider, psychiatric provider This certifies that the patient will be treated for agitation Case staffed with Dr. Celestin Assessment and Plan - Patient Problems (1) Schizophrenia Current Visit: Yes Status: Acute Qualifiers: Schizophrenia type: unspecified Qualified Code(s): F20.9 - Schizophrenia, unspecified (2) Schizophrenia Current Visit: Yes Status: Acute Medications and Allergies Allergies Allergy/AdvReac Type Severity Reaction Status Date / Time No Known Allergies Allergy Verified 09/14/16 10:10 Home Medications Medication Instructions Recorded Confirmed Last Taken Type Citalopram [celeXA] 10 mg PO QDAY #30 tablet 05/23/19 08/24/20 Unknown Rx amLODIPine 10 mg PO DAILY 30 Days #30 tab 05/23/19 08/24/20 Unknown Rx amLODIPine 10 mg PO DAILY #30 tablet 08/23/20 08/24/20 Unknown Rx hydroCHLOROthiazide [HCTZ] 12.5 mg PO QDAY #30 capsule 08/23/20 08/24/20 Unknown Rx metFORMIN [Glucophage] 500 mg PO BID 30 Days #60 tablet 08/23/20 08/24/20 Unknown Rx Active Meds: Active Medications Amlodipine Besylate (Amlodipine 10 Mg Tab) 10 mg PO DAILY [facility] Last Admin: 08/25/20 09:39 Dose: 10 mg Documented by: Citalopram Hydrobromide (Citalopram 10 Mg Tab) 10 mg PO QDAY [facility] Last Admin: 08/25/20 09:39 Dose: 10 mg Documented by: Divalproex Sodium (Divalproex Dr 125 Mg Tab) 125 mg PO BID [facility] Last Admin: 08/25/20 21:12 Dose: 125 mg Documented by: Hydrochlorothiazide (Hydrochlorothiazide 12.5 Mg Cap) 12.5 mg PO QDAY [facility] Last Admin: 08/25/20 09:39 Dose: 12.5 mg Documented by: Metformin HCl (Metformin 500 Mg Tab) 500 mg PO BIDDIAB [facility] Last Admin: 08/25/20 17:07 Dose: 500 mg Documented by: Trazodone HCl (Trazodone 50 Mg Tab) 50 mg PO QHS [facility] Last Admin: 08/25/20 21:12 Dose: 50 mg Documented by: Results - Results Labs/Vitals: Laboratory Last Values Sodium 137 mmol/L (137-145) 08/23/20 23:53 Potassium 4.1 mmol/L (3.6-5.0) 08/23/20 23:53 Chloride 99.3 mmol/L (98-107) 08/23/20 23:53 Carbon Dioxide 26 mmol/L (22-30) 08/23/20 23:53 Anion Gap 16 mmol/L 08/23/20 23:53 BUN 20 mg/dL (9-20) 08/23/20 23:53 Creatinine 1.1 mg/dL (0.8-1.3) 08/23/20 23:53 Estimated GFR > 60 ml/min 08/23/20 23:53 BUN/Creatinine Ratio 18 % 08/23/20 23:53 Glucose 179 mg/dL (75-100) H 08/23/20 23:53 POC Glucose 161 mg/dL (70-105) H 08/26/20 06:30 Hemoglobin A1c 7.7 % (4-6) H 08/23/20 23:53 Calcium 9.7 mg/dL (8.4-10.2) 08/23/20 23:53 Total Bilirubin 0.30 mg/dL (0.1-1.2) 08/23/20 23:53 AST 22 units/L (5-40) 08/23/20 23:53 ALT 20 units/L (7-56) 08/23/20 23:53 Alkaline Phosphatase 100 units/L (35-129) 08/23/20 23:53 Total Protein 7.1 g/dL (6.3-8.2) 08/23/20 23:53 Albumin 3.8 g/dL (3.9-5) L 08/23/20 23:53 Albumin/Globulin Ratio 1.2 % 08/23/20 23:53 Triglycerides 57 mg/dL (2-149) 08/23/20 23:53 Cholesterol 113 mg/dL (50-199) 08/23/20 23:53 LDL Cholesterol Direct 62 mg/dL (50-130) 08/23/20 23:53 HDL Cholesterol 53 mg/dL (40-59) 08/23/20 23:53 Cholesterol/HDL Ratio 2.13 % 08/23/20 23:53 TSH 2.360 mlU/mL (0.270-4.200) 08/23/20 23:53 Hepatitis A IgM Ab Non-reactive (NonReactive) 08/23/20 23:53 Hep Bs Antigen Non-reactive (Negative) 08/23/20 23:53 Hep B Core IgM Ab Non-reactive (NonReactive) 08/23/20 23:53 Hepatitis C Antibody Non-reactive (NonReactive) 08/23/20 23:53 Last Vital Signs Temp 97.2 F L 08/26/20 08:13 Pulse 93 H 08/26/20 08:13 Resp 18 08/26/20 08:13 BP 149/86 08/26/20 08:13 Pulse Ox 93 08/26/20 08:13
[2020-08-26] MEDS: amLODIPine 10 MG TAB PO SCH (09:21)
[2020-08-26] MEDS: hydroCHLOROthiazide 12.5 MG CAP PO SCH (09:21)
[2020-08-26] MEDS: CITALOPRAM 10 MG TAB PO SCH (09:21)
[2020-08-26] MEDS: metFORMIN 500 MG TAB PO SCH ×2 (09:21→16:31)
[2020-08-26] MEDS: DIVALPROEX DR 125 MG TAB PO SCH (09:21)
--- NOTE | 2020-08-26 12:44 | Discharge Summary ---
Providers - Providers Date of Admission: 08/23/20 23:24 Date of discharge: 08/26/20 Attending physician: TRINH RANDOLPH MD 08/23/20 20:04 Consult to Physician [CONS] Routine Comment: Consulting Provider: MARIA EUGENIA GUTIÉRREZ Physician Instructions: Reason For Exam: manage medical conditions Primary care physician: BUSINESS INTERN Hospitalization Reason for admission: Suicidal Ideation Admitting Diagnosis: F33.1 - MAJOR DEPRESSIVE DISORDER, RECURRENT, MODERATE Condition: Stable Hospital course: The patient was provided inpatient psychiatric treatment with safe and supportive environment, group/individual therapy, psychiatric medication, medication adjustment, adverse effect monitor, medical evaluation, medical treatment, social service assessment, social support meeting, placement assessment and psycho-education. The patients mood, cognition, behavior, motivation, compliance to treatment and appreciation on family/social support are improved and stabilized. At the time of discharge, the patient had no suicidal ideas, no homicidal ideas, no aggressive thoughts, no endangering behavior and no debilitating adverse effects. The patient agreed on the treatment plan, understood the risk, benefit, alternative treatment, potential consequence of no treatment, and gave informed consent. Disposition: DC-01 TO HOME OR SELFCARE Allergies/Adverse Reactions: Allergies No Known Allergies Allergy (Verified 09/14/16 10:10) Vital Signs: Last Vital Signs Temp 97.2 F L 08/26/20 08:13 Pulse 93 H 08/26/20 09:21 Resp 18 08/26/20 08:13 BP 149/86 08/26/20 09:21 Pulse Ox 93 08/26/20 08:13 Last Lab: Laboratory Last Values Sodium 137 mmol/L (137-145) 08/23/20 23:53 Potassium 4.1 mmol/L (3.6-5.0) 08/23/20 23:53 Chloride 99.3 mmol/L (98-107) 08/23/20 23:53 Carbon Dioxide 26 mmol/L (22-30) 08/23/20 23:53 Anion Gap 16 mmol/L 08/23/20 23:53 BUN 20 mg/dL (9-20) 08/23/20 23:53 Creatinine 1.1 mg/dL (0.8-1.3) 08/23/20 23:53 Estimated GFR > 60 ml/min 08/23/20 23:53 BUN/Creatinine Ratio 18 % 08/23/20 23:53 Glucose 179 mg/dL (75-100) H 08/23/20 23:53 POC Glucose 161 mg/dL (70-105) H 08/26/20 06:30 Hemoglobin A1c 7.7 % (4-6) H 08/23/20 23:53 Calcium 9.7 mg/dL (8.4-10.2) 08/23/20 23:53 Total Bilirubin 0.30 mg/dL (0.1-1.2) 08/23/20 23:53 AST 22 units/L (5-40) 08/23/20 23:53 ALT 20 units/L (7-56) 08/23/20 23:53 Alkaline Phosphatase 100 units/L (35-129) 08/23/20 23:53 Total Protein 7.1 g/dL (6.3-8.2) 08/23/20 23:53 Albumin 3.8 g/dL (3.9-5) L 08/23/20 23:53 Albumin/Globulin Ratio 1.2 % 08/23/20 23:53 Triglycerides 57 mg/dL (2-149) 08/23/20 23:53 Cholesterol 113 mg/dL (50-199) 08/23/20 23:53 LDL Cholesterol Direct 62 mg/dL (50-130) 08/23/20 23:53 HDL Cholesterol 53 mg/dL (40-59) 08/23/20 23:53 Cholesterol/HDL Ratio 2.13 % 08/23/20 23:53 TSH 2.360 mlU/mL (0.270-4.200) 08/23/20 23:53 Hepatitis A IgM Ab Non-reactive (NonReactive) 08/23/20 23:53 Hep Bs Antigen Non-reactive (Negative) 08/23/20 23:53 Hep B Core IgM Ab Non-reactive (NonReactive) 08/23/20 23:53 Hepatitis C Antibody Non-reactive (NonReactive) 08/23/20 23:53 - Discharge Diagnoses (1) Schizophrenia Status: Acute Qualifiers: Schizophrenia type: unspecified Qualified Code(s): F20.9 - Schizophrenia, unspecified (2) Schizophrenia Status: Acute Core Measure Documentation - Palliative Care Palliative Care/ Comfort Measures: Not Applicable - Core Measures Any of the following diagnoses?: none Exam - Constitutional Vitals: Temp Pulse Resp BP Pulse Ox 97.2 F L 93 H 18 149/86 93 08/26/20 08:13 08/26/20 09:21 08/26/20 08:13 08/26/20 09:21 08/26/20 08:13 General appearance: Present: no acute distress Peripheral Pulses: within normal limits - Psychiatric Psychiatric: appropriate mood/affect Plan Activity: advance as tolerated Weight Bearing Status: Weight Bear as Tolerated Diet: regular Care Plan Goals: Maintain good and stable mental health. Plan of Treatment: The patient should be compliant with medications, not to use drugs and not to drink alcohol. The patient understands that if suicidal ideas, homicidal ideas, or any endangering thoughts arise, the patient should immediately seek for emergent assistance including but not limited to crisis hot line and emergency room. Follow up with outpatient Psychiatrist and PCP within 7 - 14 days of discharge. Follow up with: PRIMARY CARE, [Primary Care Provider] - 7 Days Prescriptions: traZODone [Desyrel] 50 mg PO QHS 30 Days #30 tablet Divalproex [Haleigh Mccain] 125 mg PO BID 30 Days #60 tablet Pending Studies .
== END 2020-08-26 16:45 | disposition home or self-care (01) | DRG 885 ==
LOC: UNDOADMIN 15:30 → 3A 15:30 → 5A 23:24
PROVIDERS: ADMIT Psychiatry & Neurology Psychiatry; ATTEND Psychiatry & Neurology Psychiatry
DX: F20.9 Schizophrenia, unspecified (principal); I10 Essential (primary) hypertension; E11.9 Type 2 diabetes mellitus without complications; F14.90 Cocaine use, unspecified, uncomplicated; F17.200 Nicotine dependence, unspecified, uncomplicated; Z72.89 Other problems related to lifestyle; Z79.899 Other long term (current) drug therapy
CPT/HCPCS: 36415; 80048; 80053; 80061; 80074; 80307; 80320; 81001; 82962; 83036; 84443; 85025; 96372; G0378; G0480; J1815; U0003